=== PATIENT | female | born 1990 | race Caucasian/White ===

== ENCOUNTER → 2017-11-29 14:51 | Outpatient (CLI) | payer OTHER, SELFPAY ==
--- NOTE | 2017-11-29 14:55 | US_ITS ---
US breast LT complete Ordering Physician: Roselyn Gallagher Patient Age: 27 years: Female HISTORY: ITS.REASON: LT BREAST LUMP TECHNIQUE: Ultrasound entire breast. Axillary survey COMPARISON :August 2015. FINDINGS Ultrasound reveals dense breast tissue throughout the breasts with no focal mass or cyst identified. The palpable area seems to correspond with a dense area of fibrous tissue. Suggest follow-up ultrasound in 4 months to confirm stability negative ultrasound imaging results should not preclude biopsy of a clinically suspicious palpable area At the area does progress she may want to consider on the mammogram particularly once patient over 28 Scattered small benign axillary lymph nodes observed I would note a similar pattern was seen on the August 2015 ultrasound left breast. No significant change or new findings since that study IMPRESSION: Ultrasound reveals only dense breast tissue, with no unique cyst or mass or architectural distortion evident.
== END ==
PROVIDERS: Family Provider Nurse Practitioner; PCP Family Medicine; Visit Provider Nurse Practitioner
DX: N63.20 Unspecified lump in the left breast, unspecified quadrant (principal)
CPT/HCPCS: 76641

== ENCOUNTER → 2018-05-05 11:01 | Outpatient (CLI) | payer OTHER, SELFPAY ==
[2018-05-05 11:27] LABS: Basophils % 0.4 % (0.1-2.0); Eosinophils # 0.1 K/mm3 (0.0-0.4); Eosinophils % 0.9 % (0.1-12.0); Hematocrit 38.1 % (37.0-47.0); Hemoglobin 12.9 g/dL (12.2-16.2); Lymphocytes # 2.7 K/mm3 (0.7-4.5); Mean Corpuscular HGB Conc 33.8 g/dL (31.8-35.4); Mean Corpuscular Hemoglobin 29.3 pg (27.0-31.2); Mean Corpuscular Volume 86.7 fl (81-99); Mean Platelet Volume 6.9 fl (7.4-10.4); Monocytes # 0.4 K/mm3 (0.1-1.0); Neutrophils # 4.7 K/mm3 (1.8-7.8); Neutrophils % 59.7 % (37.0-80.0); Platelet Count 261 K/mm3 (142-424); Red Blood Count 4.39 M/mm3 (4.20-5.40); Red Cell Distribution Width 12.3 % (11.5-17.5); White Blood Count 7.9 K/mm3 (4.8-10.8)
[2018-05-06 10:59] LABS: HIV Screen 4th Generation wRfx Non Reactive (Non Reactive); Rubella Antibodies, IgG 1.58 index (Immune >0.99)
[2018-05-06 11:00] LABS: Hepatitis B Surface Antigen Negative (Negative); Hepatitis C Antibody 0.1 s/co ratio (0.0-0.9); Rapid Plasma Reagin Ab Titer Non Reactive (NonRea<1:1)
== END ==
PROVIDERS: Visit Provider Nurse Practitioner Obstetrics & Gynecology
DX: Z34.90 Encounter for supervision of normal pregnancy, unspecified, unspecified trimester (principal)
CPT/HCPCS: 36415; 85025; 86592; 86703; 86762; 86850; 87340; 87380; G0432

== ENCOUNTER → 2018-05-13 14:40 | Outpatient (CLI) | payer OTHER, SELFPAY ==
--- NOTE | 2018-05-13 14:41 | US_ITS ---
US OB transvaginal HISTORY: ITS.REASON: US OB Dates ORDERING PHYSICIAN: Bill Moody MD PATIENT AGE: 28 years COMPARISON: None FINDINGS: An intrauterine gestational sac is present with a pole with a crown-rump length of 2.00cm correlating to gestational age of 8w5d. heart tones are present with an FHR of 178 bpm's. Yolk sac is noted. Adnexa: Adnexa. IMPRESSION: Live intrauterine gestation at 8 weeks 5 days as described above. Estimated due date by Ultrasound is 12/18/2018
== END ==
PROVIDERS: PCP Nurse Practitioner; Visit Provider Nurse Practitioner Obstetrics & Gynecology
DX: O26.841 Uterine size-date discrepancy, first trimester (principal)
CPT/HCPCS: 76817

== ENCOUNTER → 2018-08-03 15:01 | Outpatient (CLI) | payer OTHER, SELFPAY ==
--- NOTE | 2018-08-03 15:06 | US_ITS ---
US OB /maternal detail: INDICATION: ITS.REASON: US OB Complete ORDERING PHYSICIAN: Bill Moody MD PATIENT AGE: 28 years TECHNIQUE: ultrasound transabdominal scanning. COMPARISON: No previous relevant studies. FINDINGS: Single viable intrauterine gestation. Breech position. Placenta: Anterior placenta grade 1. There is average amount fluid. The cervix appears satisfactory. Closed and measuring 3 cm in length. Complete survey performed and was unremarkable on the submitted images as in PACS. No discrete anomalies identified on survey imaging by technologist. Active fetus. Three-vessel cord with satisfactory umbilical cord insertion. 4- chamber heart noted. Survey of brain & ventricles unremarkable. Face and neck survey unremarkable. Diaphragm and chest views unremarkable. Abdomen: Both kidneys noted and unremarkable. Stomach noted and satisfactory. Spine: Survey of the spine satisfactory with no anomalies identified nor imaged. Both arms and legs noted. Amniotic Fluid: Adequate. Maternal adnexa: No significant findings. Measurements: Average ultrasound age 20w4d. Gestational Age 20w0d. Estimated due date by ultrasound age 0712/17/2018. Estimated weight 352 grams. BPD = 20w6d OFD = 21w3d HC = 20w4d AC = 20w4d FL = 20w2d Growth Percentile= 69% Heart Rate = 165 Cerebellum = 20w0d Humerus = 21w2d HC/AC is 1.17 (1.09-1.26). CI is 76% (70-86%). FL/BPD is 67%. FL/AC is 21%. IMPRESSION: There is a single live fetus in breech presentation. Average ultrasound age is 20 weeks and 4 days. All parameters correlate. No obvious anomalies. Please see above for detail
== END ==
PROVIDERS: PCP Nurse Practitioner; Visit Provider Nurse Practitioner Obstetrics & Gynecology
DX: Z36.0 Encounter for antenatal screening for chromosomal anomalies (principal)
CPT/HCPCS: 76811

== ENCOUNTER → 2018-09-16 06:58 | Outpatient (CLI) | payer OTHER, SELFPAY ==
[2018-09-16 07:25] LABS: Glucose,Fasting 80 mg/dL (60-105)
[2018-09-16 08:41] LABS: Glucose 1 Hour 99 mg/dL (74-106)
== END ==
PROVIDERS: Visit Provider Nurse Practitioner Obstetrics & Gynecology
DX: Z34.90 Encounter for supervision of normal pregnancy, unspecified, unspecified trimester (principal)
CPT/HCPCS: 36415; 82951

== ENCOUNTER 2018-11-17 14:12 | Outpatient (CLI) | payer OTHER, SELFPAY ==
[2018-11-17 14:22] VITALS: BP 122/76; PULSE 104; RESP 20; BMI 27.6
== END 2018-11-17 15:45 | disposition home or self-care (01) ==
LOC: OBOUT 14:13 → OB 14:14
PROVIDERS: Visit Provider Obstetrics & Gynecology
DX: O21.9 Vomiting of pregnancy, unspecified (principal); Z3A.35 35 weeks gestation of pregnancy; R11.0 Nausea
CPT/HCPCS: 59025; 96360; 96367

== ENCOUNTER → 2018-11-23 18:01 | Outpatient (CLI) | payer OTHER, SELFPAY | PROVIDERS: Visit Provider Nurse Practitioner Obstetrics & Gynecology | DX: Z34.90 Encounter for supervision of normal pregnancy, unspecified, unspecified trimester (principal) | CPT/HCPCS: 86403 ==

== ENCOUNTER 2018-12-02 19:03 | Outpatient (CLI) | payer OTHER, SELFPAY ==
[2018-12-02 19:40] VITALS: BP 123/76; PULSE 94; RESP 18; TEMP 36.7
[2018-12-02 20:35] VITALS: BMI 27.8
[2018-12-02 20:47] VITALS: BMI 27.8
== END 2018-12-02 20:45 | disposition home or self-care (01) ==
LOC: OBOUT 19:07 → OB 19:09
PROVIDERS: PCP Nurse Practitioner Obstetrics & Gynecology; Visit Provider Nurse Practitioner Obstetrics & Gynecology
DX: O26.892 Other specified pregnancy related conditions, second trimester (principal); Z3A.37 37 weeks gestation of pregnancy; W19.XXXA Unspecified fall, initial encounter
CPT/HCPCS: 59025

== ENCOUNTER 2018-12-23 04:49 | Inpatient (IN) ==
[2018-12-23 05:05] LABS: Microscopic, Urine URINE MICROSCOPIC (MICROSCOPIC)
[2018-12-23 05:06] LABS: Appearance,Urine CLEAR (Clear); Bilirubin,Urine Negative (Negative); Blood, Urine 2+ (Negative); Color,Urine YELLOW (Yellow); Glucose,Urine (UA) Negative (Negative); Ketones,Urine Negative (Negative); Leukocyte Esterase,Urine 2+ (Negative); Protein,Urine Negative (Negative); Urobilinogen,Urine 0.2 EU/dl (0.2)
[2018-12-23 05:16] LABS: Amphetamine/Metha Screen,Urine Negative ng/mL (<1000); Barbiturates Screen,Urine Negative ng/mL (<200); Benzodiazepines Screen,Urine Negative ng/mL (<200); Cannabinoid Screen,Urine Negative ng/mL (<50); Cocaine Screen,Urine Negative ng/mL (<300); Methadone Screen,Urine Negative ng/mL (<300); Opiate Screen,Urine Negative ng/mL (<300); Phencyclidine Screen,Urine Negative ng/mL (<25)
[2018-12-23 05:37] LABS: Basophils % 0.4 % (0.1-2.0); Eosinophils # 0.1 K/mm3 (0.0-0.4); Hematocrit 39.3 % (37.0-47.0); Hemoglobin 13.2 g/dL (12.2-16.2); Lymphocytes # 2.3 K/mm3 (0.7-4.5); Lymphocytes % 22.1 % (10-50); Mean Corpuscular HGB Conc 33.7 g/dL (31.8-35.4); Mean Corpuscular Volume 86.3 fl (81-99); Monocytes # 0.3 K/mm3 (0.1-1.0); Monocytes % 3.3 % (1.7-9.3); Neutrophils # 7.5 K/mm3 (1.8-7.8); Neutrophils % 73.2 % (37.0-80.0); Platelet Count 191 K/mm3 (142-424); Red Blood Count 4.55 M/mm3 (4.20-5.40); Red Cell Distribution Width 12.6 % (11.5-17.5); White Blood Count 10.3 K/mm3 (4.8-10.8)
[2018-12-23 05:40] LABS: Bacteria,Urine 1+ /lpf; Mucus,Urine 1+ /lpf
--- NOTE | 2018-12-23 08:23 | Progress Note ---
[facility] Anesthesia Checklist - Patient Identification Patient Identification: Arm Band - Structural Data Admitted From: Home Planned Operative Procedure/s: labor epidural Consent for Planned Operative Procedure(s) Verified: Yes Verified Documents: Surgical Consent, History and Physical - NPO Status Verified Time NPO: 00:00 - Additional verifications Anesthesia Reactions: No - Airway Assessment C-Spine Mobility Assessed: Yes (mp2) TMJ Mobility Assessed: Yes Dentition: Good Dentition - Neurological Assessment Level of Consciousness: Awake, Alert - Anesthesia Plan Anesthesia Risk discussed: Yes Anesthesia Plan: Verified ASA Class: II Anesthesia Type: Epidural [facility] History I have reviewed the patient's past medical history: Yes *Have you ever received a pneumonia vaccine?: No *Have you received a flu vaccine this season?: Yes Laterality Cases: Other Surgeries: Yes: Other. 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
--- NOTE | 2018-12-23 08:27 | History & Physical Report ---
OB - H&P: HPI Antepartum - History of Present Illness Chief complaint: Contractions History of present illness: She was seen in my office yesterday and began having contractions last night around midnight. They are about 10 minutes apart. She arrived in labor and delivery and was found to be 4 cm dilated. - History of Present Criteria for establishing EDC:: LMP confirmed by 1st trimester US care: good care Ultrasounds: normal 1st trimester US, normal mid trimester US Obstetrical complications: none Medical complications: none - Labs GBS status: negative [facility] History I have reviewed the patient's past medical history: Yes *Have you ever received a pneumonia vaccine?: No *Have you received a flu vaccine this season?: Yes Laterality Cases: Other Surgeries: Yes: Other. 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 Para: 1 Review of Systems - Review of Systems Review of systems:: pertinent systems reviewed and negative unless documented below Meds Home Medications Medication Instructions Recorded Confirmed Type 1 tab PO DAILY 05/04/18 12/23/18 History vitamin,calcium,ytpftstj-rimz-egqar acid tablet Ferrous Sulfate 325 mg PO DAILY 12/23/18 12/23/18 History Allergies Allergy/AdvReac Type Severity Reaction Status Date / Time No Known Allergies Allergy Verified 12/22/18 08:24 OB - H&P: Exam - Physical Exam Vital signs: Temp Pulse Resp BP Pulse Ox 98.2 F 102 H 18 121/77 98 12/23/18 05:38 12/23/18 05:38 12/23/18 05:38 12/23/18 05:38 12/23/18 05:38 - Constitutional no acute distress - Routine HEENT Exam Head: Present: normocephalic Eye: Present: EOMI, PERRL ENT: Present: mucous membranes moist - Routine Neck Exam Present: supple, full ROM - Routine Respiratory Exam Absent: accessory muscle use (good air entry bilaterally), respiratory distress, wheezes, crackles - Routine Cardiovascular Exam Present: RRR. Absent: murmur - Routine Abdominal Exam Present: soft, normoactive bowel sounds. Absent: tenderness, distended, guarding - Routine Rectal Exam Patient deferred: visual exam, digital exam - Routine Exam Patient deferred: external exam, groin exam, perineal exam - Routine Extremities Exam Present: full ROM. Absent: cyanosis, edema - Routine Skin Exam Present: intact. Absent: cyanosis - Routine Neurological Exam Present: alert, oriented X3 - Routine Psychiatric Exam Present: normal affect OB - Results - Labs Labs: Short CBC 12/23/18 Range/Units 05:20 WBC 10.3 (4.8-10.8) K/mm3 Hgb 13.2 (12.2-16.2) g/dL Hct 39.3 (37.0-47.0) % Plt Count 191 (142-424) K/mm3 Urine 12/23/18 Range/Units 04:58 Urine Color Yellow (Yellow) Urine Appearance Clear (Clear) Urine pH 7.0 (5.0-8.5) Ur Specific [place] 1.010 (1.005-1.030) Urine Protein Negative (Negative) Urine Glucose (UA) Negative (Negative) OB - A/P Antepartum (1) Normal delivery at term Current visit: Yes Status: Acute - Additional Plan Planning to breastfeed?: Yes Plan: expectant management Additional Information:: I examined her and she was found to be 4 cm dilated. She is 75% effaced and station -2. I ruptured her membranes and there was clear fluid. We will expect a vaginal delivery.
--- NOTE | 2018-12-23 08:50 | Progress Note ---
Labor Note - Subjective: Date: 12/23/18 Time: 07:20 irregular contractions - Objective: NST:: Reactive Contractions:: infrequent Cervical Dilation:: 4 Effacement:: 80% Station: -2 Membranes: artificially ruptured Comment:: Clear fluid - Fetus: Monitoring?: Yes monitoring type:: External - Assessment: Labor progressing?: Yes Cephalopelvic disproportion?: No Patient Problems: All Active Problems (Updated 12/23/18 @ 08:26 by Bill Moody MD) Normal delivery at term (Acute) (Acute) Abnormal vaginal bleeding (Acute) - Plan: Anesthesia for epidural?: Yes Continue to labor down?: Yes Plan for ?: No Continue to monitor?: Yes Start pushing?: No
--- NOTE | 2018-12-23 08:51 | Progress Note ---
Labor Note - Subjective: Date: 12/23/18 Time: 08:50 irregular contractions - Objective: NST:: Reactive Contractions:: infrequent Cervical Dilation:: 4 Effacement:: 80% Station: -2 Membranes: artificially ruptured - Fetus: Monitoring?: Yes monitoring type:: External - Assessment: Labor progressing?: Yes Cephalopelvic disproportion?: No Patient Problems: All Active Problems (Updated 12/23/18 @ 08:26 by Bill Moody MD) Normal delivery at term (Acute) (Acute) Abnormal vaginal bleeding (Acute) - Plan: Anesthesia for epidural?: Yes Continue to labor down?: Yes Plan for ?: No Continue to monitor?: Yes Start pushing?: No Comment:: She is doing very well. The nonstress test is reactive. We will start oxytocin. She has an epidural.
--- NOTE | 2018-12-23 10:31 | Progress Note ---
Labor Note - Subjective: Date: 12/23/18 Time: 10:30 regular contraction - Objective: NST:: Reactive Contractions:: every 2-3 minutes Cervical Dilation:: 6 Effacement:: 90% Station: -2 Membranes: artificially ruptured - Fetus: Monitoring?: Yes monitoring type:: Internal and External Comment:: I inserted an IUPC - Assessment: Labor progressing?: Yes Cephalopelvic disproportion?: No Patient Problems: All Active Problems (Updated 12/23/18 @ 08:26 by Bill Moody MD) Normal delivery at term (Acute) (Acute) Abnormal vaginal bleeding (Acute) - Plan: Anesthesia for epidural?: Yes Continue to labor down?: Yes Plan for ?: No Continue to monitor?: Yes Start pushing?: No
--- NOTE | 2018-12-23 12:45 | Procedure Note ---
- Delivery Note Delivery Date:: 12/23/18 Delivery Time:: 12:32 Anesthesia Type: Epidural Was labor medically induced?: No Induction method: none Gestational age (weeks): 40 delivered prior to 39 weeks?: No Justification for early elective delivery:: Active Labor Gender: Female at 1 minute: 8 at 5 minutes: 9 LAC or MLE?: LAC Delivery Procedure:: She is a 28-year-old 3 para 1 aborta 1 who was 40+2 weeks gestational age. She came in in the activity therapist hours of December 23 in early labor. She was found to be 4 cm dilated. She subsequent he had her membranes ruptured and progressed under labor epidural to full dilation. On deliver the head the anterior shoulder then delivered followed by the rest of the infant's body atraumatically. The baby was vigorous and crying. The baby was dried and we allowed the cord to continue to pulsate for approximately 1 minute. The cord was then doubly clamped and cut and the infant was placed on the mother's abdomen for further care. The nurses assigned Apgars of at 1 minute and 9 at 5 minutes. I then obtained cord blood as well as cord pH. Using gentle traction on the cord and countertraction on the fundus I was able to easily deliver the placenta intact at 1235. It had a normal three-vessel cord. She had a small first-degree perineal laceration was repaired with interrupted 3-0 Vicryl Rapide suture. She has a positive blood, she is rubella immune and was group A streptococcus negative. She plans to breast-feed. Her pattern drum maker is Dr. Parikh. Estimated blood loss was approximately 400 cc. Laceration:: vaginal Placental Delivery Description: Spontaneous
[2018-12-24 05:48] LABS: Hematocrit 33.7 % (37.0-47.0); Hemoglobin 11.4 g/dL (12.2-16.2)
--- NOTE | 2018-12-24 09:56 | Progress Note ---
Internal Medicine - PN: Subj *Date: 12/24/18 *Time: 09:56 Interval history: She continues to do well. She is eating and drinking and ambulating. She is breast-feeding. Her lochia is normal. Exam Vital signs and Labs for Last 24 Hours: Temp Pulse Resp BP Pulse Ox 98.1 F 90 18 106/58 L 97 12/24/18 08:00 12/24/18 08:00 12/24/18 08:00 12/24/18 08:00 12/24/18 08:00 Laboratory Results - last 24 hr 12/23/18 12:51: Cord ABG pH 7.39 12/24/18 05:40: Hgb 11.4 L, Hct 33.7 L I & O for Last 24 hours: Intake & Output 12/21/18 12/22/18 12/23/18 12/24/18 11:59 11:59 11:59 11:59 Output Total 750 / 750 Balance -750 / -750 Weight 167 lb Microbiology Reports for the Last 24 Hours: Microbiology 12/23/18 04:58 Urine,Clean Catch Urine Culture - Preliminary - Constitutional no acute distress Assessment and Plan (1) Normal delivery at term Current visit: Yes Status: Acute Category: Medical Code(s): O80 - Encounter for full-term uncomplicated delivery - Assessment and plan all Dx Assessment and Plan for all problems:: She continues to do very well. We will plan to send her home tomorrow.
[2018-12-25 08:15] VITALS: BP 119/58
--- NOTE | 2018-12-25 10:13 | Discharge Summary ---
General - General Admission date:: 12/23/18 Discharge date: 12/25/18 HPI HPI: She is a 28-year-old 3 now para 2 aborta 1 who was 40 and 2 weeks gestational age. She came in in early labor. She was found to be 4 cm dilated. As result of that she was admitted for delivery. Hospital Course Hospital Course: She progressed under labor epidural to full dilation and delivered spontaneously a liveborn female child at 12:32 PM in the afternoon of December 23, 2018. The baby weighed 7 pounds 7 ounces and was 19 and three-quarter inches long. She had Apgars of 8 at 1 minute and 9 at 5 minutes. She has done well and has remained afebrile throughout her hospitalization. She is eating and drinking and ambulating. She is breast- feeding. Her user interface developer Dr. Parikh. She has a positive blood, she is rubella immune and was group B stopcock is negative. She is discharged home to follow-up with me in approximately 2 weeks time. She will continue with her vitamins and iron. She is taking brox-rle-hmyokqr analgesics. Her condition on discharge is stable. Rhogam Administration: Not Indicated Objective Vital signs: Temp Pulse Resp BP Pulse Ox 97.9 F 90 20 119/58 L 97 12/25/18 08:00 12/25/18 08:00 12/25/18 08:00 12/25/18 08:00 12/25/18 08:00 no acute distress DS: Diagnosis - Discharge Diagnosis (1) Normal delivery at term Status: Acute Discharge Plan - Patient Discharge Instructions ACTIVITY: No heavy lifting DIET: continue same diet Additional Instructions: No heavy lifting, no strenuous activity and nothing in the vagina for [address] Moody's office tomorrow for 2 week follow up appt. Patient Instructions: Depression, Hemorrhage, [facility] Post Discharge Instructions - Follow up Plan Disposition: Home, Self-Detention Medications: Home Medications Medication Instructions Recorded Confirmed Type 1 tab PO DAILY 05/04/18 12/23/18 History vitamin,calcium,abcancec-vruu-fcxwe acid tablet Ferrous Sulfate 325 mg PO DAILY 12/23/18 12/23/18 History Prescriptions/Medication Reconciliation: Continued vitamin,calcium,zvofjtyi-frjn-lsjlu acid tablet 1 tab PO DAILY Ferrous Sulfate 325 mg PO DAILY
== END 2018-12-25 10:42 | disposition home or self-care (01) | DRG 807 ==
LOC: OBOUT 04:49 → OB 04:51
PROVIDERS: ADMIT Obstetrics & Gynecology; ATTEND Nurse Practitioner Obstetrics & Gynecology
CPT/HCPCS: C1758

== ENCOUNTER → 2019-10-16 13:03 | Outpatient (CLI) | payer OTHER, SELFPAY ==
--- NOTE | 2019-10-16 13:06 | XR_ITS ---
PROCEDURE: XR FINGER LT MIN 2V CLINICAL INDICATION: left thumb pain COMPARISON: FINR1 [id number] (THUMB)-3 VIEWS from 06/14/2014 FINDINGS: No fracture or dislocation. No lytic or blastic change. There is normal mineralization. The joint spaces are well-preserved. No significant degenerative/arthritic changes. No erosive changes evident. Other findings:None. IMPRESSION: Negative left thumb Dictated by: Bashir Acharya MD 10/16/2019 13:46 Electronically signed by Bashir Acharya MD in [place] 10/16/2019 13:46
== END ==
PROVIDERS: PCP Nurse Practitioner; Visit Provider Orthopaedic Surgery
DX: M79.645 Pain in left finger(s) (principal)
CPT/HCPCS: 73140

== ENCOUNTER → 2019-11-29 07:11 | Outpatient (CLI) | payer OTHER, SELFPAY ==
[2019-11-29 07:52] LABS: Basophils # 0.1 K/mm3 (0-0.2); Basophils % 0.7 % (0.1-2.0); Eosinophils # 0.1 K/mm3 (0.0-0.4); Hematocrit 42.3 % (37.0-47.0); Hemoglobin 14.5 g/dL (12.2-16.2); Lymphocytes # 2.8 K/mm3 (0.7-4.5); Lymphocytes % 40.1 % (10-50); Mean Corpuscular HGB Conc 34.4 g/dL (31.8-35.4); Mean Corpuscular Hemoglobin 30.3 pg (27.0-31.2); Mean Corpuscular Volume 88.2 fl (81-99); Mean Platelet Volume 6.8 fl (7.4-10.4); Monocytes # 0.3 K/mm3 (0.1-1.0); Monocytes % 4.5 % (1.7-9.3); Neutrophils # 3.7 K/mm3 (1.8-7.8); Neutrophils % 52.7 % (37.0-80.0); Platelet Count 263 K/mm3 (142-424); Red Blood Count 4.79 M/mm3 (4.20-5.40); Red Cell Distribution Width 12.9 % (11.5-17.5)
[2019-11-29 08:37] LABS: Chloride 103 mmol/L (98-107); Sodium 138 mmol/L (136-145)
[2019-11-29 08:38] LABS: Potassium 4.2 mmoL/L (3.5-5.1)
[2019-11-29 08:40] LABS: Alanine Aminotransferase 14 U/L (12-78); Alkaline Phosphatase 85 U/L (38-126); Aspartate Amino Transferase 21 U/L (14-36); Bilirubin,Total 0.8 mg/dl (0.2-1.3); Blood Urea Nitrogen 15 mg/dl (7-17); Estimated Glomerular Filt Rate 99 ml/min (>60); GFR (African American) 120 ML/MIN (>60)
[2019-11-29 08:41] LABS: Albumin Level 4.6 g/dl (3.5-5.0); Albumin/Globulin Ratio 1.8 (1.1-1.8); Anion Gap 10.2 mEq/L (5-15); Calcium 9.2 mg/dl (8.4-10.2); Carbon Dioxide 29 mmol/L (22.0-30.0); Globulin 2.5 g/dL (1.3-3.2); Glucose 84 mg/dl (74-100); Total Protein,Serum 7.1 g/dl (6.3-8.2)
[2019-11-29 09:12] LABS: Thyroid Stimulating Hormone 2.44 uIU/mL (0.465-4.68)
[2019-11-29 09:34] LABS: 25-OH Vitamin D, Total 55.1 ng/mL (30-100)
[2019-11-29 10:25] LABS: Coronavirus 19 IgG Antibody Negative (Negative); Coronavirus 19 IgM Antibody Negative (Negative)
[2019-11-30 12:44] LABS: Vitamin B12 1302 pg/mL (232-1245)
== END ==
PROVIDERS: Visit Provider Surgery
DX: R53.83 Other fatigue (principal); Z03.818 Encounter for observation for suspected exposure to other biological agents ruled out
CPT/HCPCS: 36415; 80053; 82306; 82607; 84443; 85025; 86328

== ENCOUNTER → 2020-01-29 11:13 | Outpatient (CLI) | payer OTHER, SELFPAY ==
[2020-01-30 16:20] LABS: Covid-19 Nasal PCR Sendout Lex NOT DETECTED
== END ==
PROVIDERS: PCP Internal Medicine Adolescent Medicine; Visit Provider Internal Medicine Adolescent Medicine
DX: Z03.818 Encounter for observation for suspected exposure to other biological agents ruled out (principal)
CPT/HCPCS: U0004

== ENCOUNTER → 2020-04-03 12:13 | Outpatient (CLI) | payer OTHER, SELFPAY ==
[2020-04-03 12:53] LABS: Basophils % 0.4 % (0.1-2.0); Eosinophils # 0.1 K/mm3 (0.0-0.4); Eosinophils % 1.9 % (0.1-12.0); Hematocrit 43.6 % (37.0-47.0); Hemoglobin 14.5 g/dL (12.2-16.2); Lymphocytes # 2.4 K/mm3 (0.7-4.5); Lymphocytes % 34.3 % (10-50); Mean Corpuscular HGB Conc 33.4 g/dL (31.8-35.4); Mean Corpuscular Hemoglobin 29.4 pg (27.0-31.2); Mean Corpuscular Volume 88.2 fl (81-99); Monocytes # 0.3 K/mm3 (0.1-1.0); Monocytes % 3.9 % (1.7-9.3); Neutrophils # 4.1 K/mm3 (1.8-7.8); Neutrophils % 59.4 % (37.0-80.0); Platelet Count 319 K/mm3 (142-424); Red Blood Count 4.94 M/mm3 (4.20-5.40); Red Cell Distribution Width 12.6 % (11.5-17.5); White Blood Count 6.9 K/mm3 (4.8-10.8)
[2020-04-03 13:04] LABS: HCG Qualitative, Serum Negative (Negative)
[2020-04-03 13:09] LABS: Chloride 100 mmol/L (98-107); Sodium 141 mmol/L (136-145)
[2020-04-03 13:10] LABS: Potassium 4.4 mmoL/L (3.5-5.1)
--- NOTE | 2020-04-03 13:10 | CA_ITS ---
APPROVED REPORT EXAM: Comprehensive 2D, Doppler, and color-flow Echocardiogram Glass Polisher: Reyna Hwang CRT Ht: 5 ft 5 in Wt: 138lbs BSA: 1.69 BP: 117/74 mmHg Indications: Abnormal ECG, Shortness of Breath, Palpitations, Peripheral Edema, Tachycardia 2D Dimensions LVOT 2.01 cm (M/F) 1.5-2.5 M-Mode Dimensions RVDd 2.28 cm (0.9-2.6) LVDd 4.93 cm (3.5-5.7) LVDs 3.59 cm (3.5-5.7) IVSd 0.59 cm (0.6-1.1) PWd 0.67 cm (0.6-1.1) EF (Teich) 52.70% FS 27.20% EDV (Teich) 114.40 mL ESV (Teich) 54.10 mL LV Diastology E Decel Time 150.00 (160-240 msec) E/A Ratio 0.96 MED E' 11.00 (< 7 cm/sec) E'/MED E' Ratio 5.93 (>14) LAT E' 18.80 (<10 cm/sec) E/LAT E' Ratio 3.47 (>14) Aortic Valve AO Peak GR. 5.50 mmHg Mitral Valve MV E Max Blanco. 65.00 (40-130 cm/s) MV A Velocity 68.00 (40-130 cm/s) E/A Ratio 0.96 MV Decel. Time 150.00 (160-240 ms) MV PHT 44.00 ms Pulmonary Valve PV Peak Velocity 64.00 (50-150 cm/s) Tricuspid Valve TR P. Velocity 186.00 cm/s RAP Estimate 10.00 mmHg RVSP 23.90 mmHg Left Ventricle Left atrium is normal size, left ventricle is normal size, there is no concentric left ventricular hypertrophy, visually estimated ejection fraction 55% with no regional wall motion abnormality, diastolic parameters are within normal range. Right Ventricle Right atrium and right ventricular normal size and contractility. Aortic Valve Aortic valve is grossly normal, there is no aortic stenosis or aortic insufficiency. Mitral Valve Mitral valve is grossly normal, there is trace mitral regurgitation. Tricuspid Valve Tricuspid valve is grossly normal, there is trace tricuspid regurgitation. Tricuspid regurgitation jet velocity is inadequate for calculation of the right ventricular systolic pressure. Pulmonic Valve Pulmonic valve is poorly visualized. Great Vessels Aortic root is normal size. Pericardium No significant pericardial effusion noted. Conclusion 1. Normal left ventricular size, preserved left ventricular systolic function, visually estimated ejection fraction 55% with no regional wall motion abnormality, diastolic parameters are within normal range. 2. Trace mitral and tricuspid regurgitation. 3. No significant pericardial effusion noted. Electronically signed by : Janes Da Silva, 04/04/2020 15:38:30
--- NOTE | 2020-04-03 13:11 | CT_ITS ---
PROCEDURE: CT ANGIO CHEST CLINCIAL INDICATION: with PE protocol soa, palpitations x several months COMPARISON: No exams were available for comparison TECHNIQUE: IV Contrast: 70ML OPTIRAY 350 Axial images obtained with sagittal and coronal reformats. All CT scans at the facility use one or more dose reduction, viz: automated exposure control, ma/kV adjustment per patient size (including targeted exams where dose is matched to indication, i.e. head), or iterative reconstruction technique. FINDINGS: HEART AND MEDIASTINAL STRUCTURES: No evidence of aortic aneurysm or dissection. No evidence of pulmonary embolus. LUNGS AND PLEURAL SPACES: There is a peripheral area of ground-glass consolidation in the right lower lobe with a somewhat greater area consolidation adjacent to this region laterally posteriorly consistent with pneumonia. No effusions. No other areas of consolidation evident. BONY STRUCTURES: No acute bony abnormalities apparent. UPPER ABDOMEN: Unremarkable. ADDITIONAL FINDINGS: No other significant abnormalities. IMPRESSION: 1. No evidence of pulmonary embolus. 2. Consolidation in the right lower lobe as described above consistent with pneumonia Dictated by: Bashir Acharya MD 04/04/2020 08:02 Bashir Acharya MD in [place] 04/04/2020 08:03
[2020-04-03 13:12] LABS: Alanine Aminotransferase 13 U/L (12-78); Anion Gap 17.4 mEq/L (5-15); Aspartate Amino Transferase 23 U/L (14-36); Bilirubin,Unconjugated 0.7 mg/dL (0.0-1.1); Blood Urea Nitrogen 13 mg/dl (7-17); Carbon Dioxide 28 mmol/L (22.0-30.0); Estimated Glomerular Filt Rate 74 ml/min (>60); GFR (African American) 90 ML/MIN (>60)
[2020-04-03 13:13] LABS: Alkaline Phosphatase 66 U/L (38-126); Bilirubin,Indirect 0.7 mg/dL (0.0-0.9); Bilirubin,Total 0.7 mg/dl (0.2-1.3); Calcium 9.6 mg/dl (8.4-10.2); Glucose 92 mg/dl (74-100); Total Protein,Serum 7.8 g/dl (6.3-8.2)
[2020-04-03 13:30] LABS: Free T4 (Free Thyroxine) 1.15 ng/dl (0.78-2.19)
[2020-04-03 13:44] LABS: Thyroid Stimulating Hormone 1.64 uIU/mL (0.465-4.68)
[2020-04-03 14:20] LABS: D-Dimer 0.28 ug/mL (0.15-8.0)
== END ==
PROVIDERS: PCP Family Medicine; Visit Provider Nurse Practitioner Family
DX: R06.00 Dyspnea, unspecified (principal); R00.0 Tachycardia, unspecified; R00.2 Palpitations; R94.31 Abnormal electrocardiogram [ECG] [EKG]; E11.9 Type 2 diabetes mellitus without complications
CPT/HCPCS: 36415; 71275; 80048; 80076; 84439; 84443; 84703; 85025; 85378; 93225; 93226; 93306; Q9967

== ENCOUNTER → 2020-04-04 11:08 | Outpatient (CLI) | payer OTHER, SELFPAY ==
[2020-04-04 14:03] LABS: Adenovirus,PCR Not Detected (NotDetected); Bordetella Pertussis Not Detected (NotDetected); Chlamydophila Pneumoniae, PCR Not Detected (NotDetected); Coronavirus 19, PCR Not Detected (NotDetected); Coronavirus 229E Not Detected (NotDetected); Coronavirus NL63 Not Detected (NotDetected); Coronavirus OC43 Not Detected (NotDetected); Coronovirus HKU1,PCR Not Detected (NotDetected); Human Metapneumovirus Not Detected (NotDetected); Influenza A, PCR Not Detected (NotDetected); Influenza AH1, 2009 Not Detected (NotDetected); Influenza AH1, PCR Not Detected (NotDetected); Influenza AH3,PCR Not Detected (NotDetected); Influenza B, PCR Not Detected (NotDetected); Mycoplasma Pneumoniae, PCR Not Detected (NotDetected); Parainfluenza 1, PCR Not Detected (NotDetected); Parainfluenza 2, PCR Not Detected (NotDetected); Parainfluenza 3, PCR Not Detected (NotDetected); Parainfluenza 4, PCR Not Detected (NotDetected); Respiratory Syncytial Virus Not Detected (NotDetected); Rhinovirus/Enterovirus Not Detected (NotDetected)
== END ==
PROVIDERS: PCP Family Medicine; Visit Provider Nurse Practitioner Family
DX: Z03.818 Encounter for observation for suspected exposure to other biological agents ruled out (principal)
CPT/HCPCS: 87581; 87633; 87798; U0003

== ENCOUNTER → 2020-04-30 17:36 | Outpatient (CLI) | payer OTHER, SELFPAY ==
[2020-04-30 18:58] LABS: Coronavirus 19 IgG Antibody Positive (Negative); Coronavirus 19 IgM Antibody Negative (Negative)
== END ==
PROVIDERS: Visit Provider Otolaryngology
DX: Z01.84 Encounter for antibody response examination (principal)
CPT/HCPCS: 86328

== ENCOUNTER → 2020-07-03 11:06 | Outpatient (CLI) | payer OTHER, SELFPAY ==
[2020-07-03 11:41] LABS: Coronavirus 19 IgG Antibody Negative (Negative); Coronavirus 19 IgM Antibody Negative (Negative)
== END ==
PROVIDERS: Visit Provider Surgery
DX: Z01.812 Encounter for preprocedural laboratory examination (principal); Z20.822 Contact with and (suspected) exposure to COVID-19
CPT/HCPCS: 86328

== ENCOUNTER 2020-07-05 13:55 | Day surgery (SDC) | payer OTHER, SELFPAY ==
[2020-07-05 13:57] VITALS: BP 110/74; BP 110/78; PULSE 74; PULSE 89; RESP 18; O2SAT 99
[2020-07-05 13:59] VITALS: BP 101/55; PULSE 63; RESP 18; TEMP 36.6; O2SAT 100; BMI 22.4
[2020-07-05 14:07] VITALS: BP 105/58; PULSE 65; RESP 18; TEMP 36.6; O2SAT 100
--- NOTE | 2020-07-05 14:08 | [facility].PMPROC ---
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 She has developed some increasing pain over her left hip. She is tender over her left SI joint. She has a positive Tony's test on left side. She has positive SI joint compression test on left side. She is positive distraction test on left side. She has a positive Jerrell test on left side. We will plan a left SI joint injection under fluoroscopy today to help with her pain symptoms. Procedure Details:: Left SI joint injection under fluoroscopy Informed consent was obtained and the risks and benefits of the procedure was explained to the patient. Patient was taken to the procedure room. Patient was placed prone on the procedure table. The left hip was prepped using ChloraPrep. The skin and subcutaneous tissues were anesthetized using lidocaine. I placed a 22-gauge spinal needle into the inferior aspect of the left SI joint. Needle placement was confirmed with dye. After this we injected 5 mL bupivacaine 0.25% and Depo-Medrol 40 mg into the left SI joint. The patient tolerated the procedure well with no complication. Plan and Disposition:: We will follow-up with her in 2 weeks. Will reevaluate symptoms at that time.
== END 2020-07-05 14:05 | disposition home or self-care (01) ==
LOC: SC.PAINP 13:55
PROVIDERS: PCP Family Medicine; Visit Provider Anesthesiology
DX: M46.1 Sacroiliitis, not elsewhere classified (principal)
CPT/HCPCS: 27096; G0260

== ENCOUNTER → 2021-04-29 08:46 | Outpatient (POV) | payer OTHER, SELFPAY | PROVIDERS: Visit Provider Dermatology | DX: Z00.00 Encounter for general adult medical examination without abnormal findings (principal) ==

== ENCOUNTER → 2021-07-08 15:29 | Outpatient (POV) | payer OTHER, SELFPAY | PROVIDERS: Visit Provider Dermatology | DX: Z00.00 Encounter for general adult medical examination without abnormal findings (principal) ==

== ENCOUNTER → 2021-10-14 15:26 | Outpatient (POV) | payer OTHER, SELFPAY | PROVIDERS: Visit Provider Dermatology | DX: Z00.00 Encounter for general adult medical examination without abnormal findings (principal) ==

== ENCOUNTER → 2022-02-03 13:40 | Outpatient (POV) | payer OTHER, SELFPAY | PROVIDERS: Visit Provider Dermatology | DX: Z00.00 Encounter for general adult medical examination without abnormal findings (principal) ==

== ENCOUNTER → 2022-04-21 08:27 | Outpatient (POV) | payer OTHER, SELFPAY | PROVIDERS: Visit Provider Dermatology | DX: Z00.00 Encounter for general adult medical examination without abnormal findings (principal) ==

== ENCOUNTER → 2022-06-17 08:51 | Outpatient (CLI) | payer OTHER, SELFPAY ==
[2022-06-17 10:21] LABS: HCG,Quantitative 10 mIU/ml (0-5.42)
[2022-06-18 12:59] LABS: Progesterone 0.3 ng/mL (.)
== END ==
PROVIDERS: PCP Internal Medicine Adolescent Medicine; Visit Provider Nurse Practitioner Obstetrics & Gynecology
DX: N92.6 Irregular menstruation, unspecified (principal); Z32.00 Encounter for pregnancy test, result unknown
CPT/HCPCS: 36415; 84144; 84702

== ENCOUNTER → 2022-06-19 06:43 | Outpatient (CLI) | payer OTHER, SELFPAY ==
[2022-06-19 08:48] LABS: HCG,Quantitative 9 mIU/ml (0-5.42)
[2022-06-20 08:52] LABS: Progesterone 0.2 ng/mL (.)
== END ==
PROVIDERS: PCP Internal Medicine Adolescent Medicine; Visit Provider Nurse Practitioner Obstetrics & Gynecology
DX: N92.6 Irregular menstruation, unspecified (principal); Z32.00 Encounter for pregnancy test, result unknown
CPT/HCPCS: 36415; 84144; 84702

== ENCOUNTER → 2022-06-29 08:32 | Outpatient (CLI) | payer OTHER, SELFPAY ==
[2022-06-29 10:31] LABS: HCG,Quantitative 106 mIU/ml (0-5.42)
== END ==
PROVIDERS: PCP Internal Medicine Adolescent Medicine; Visit Provider Nurse Practitioner Obstetrics & Gynecology
DX: Z34.90 Encounter for supervision of normal pregnancy, unspecified, unspecified trimester (principal)
CPT/HCPCS: 36415; 84702

== ENCOUNTER → 2022-07-01 06:35 | Outpatient (CLI) | payer OTHER, SELFPAY ==
[2022-07-01 09:26] LABS: HCG,Quantitative 109 mIU/ml (0-5.42)
[2022-07-02 08:45] LABS: Progesterone 11.5 ng/mL (.)
== END ==
PROVIDERS: PCP Internal Medicine Adolescent Medicine; Visit Provider Nurse Practitioner Obstetrics & Gynecology
DX: Z32.01 Encounter for pregnancy test, result positive (principal)
CPT/HCPCS: 36415; 84144; 84702

== ENCOUNTER → 2022-07-03 06:48 | Outpatient (CLI) | payer OTHER, SELFPAY ==
[2022-07-03 08:05] LABS: HCG,Quantitative 188 mIU/ml (0-5.42)
--- NOTE | 2022-07-03 09:09 | US_ITS ---
FINAL REPORT CLINICAL HISTORY: rule out ectopic FINDINGS: Sonographic images of the pelvis were obtained. No intrauterine is identified. The uterus is unremarkable. There is a complex hypoechoic mass in the left adnexa measuring up to 17 mm with significant surrounding hypervascularity, could represent ectopic or complex cyst. The right ovary is normal. No free fluid is seen to indicate rupture/hemoperitoneum. IMPRESSION: No intrauterine . Possible ectopic within the left adnexa. Reviewed, Interpreted and Dictated by Vanessa Dennis MD Transcribed by Rebecca Bernard Authenticated and [facility]
== END ==
PROVIDERS: PCP Internal Medicine Adolescent Medicine; Visit Provider Nurse Practitioner Obstetrics & Gynecology
DX: O20.9 Hemorrhage in early pregnancy, unspecified (principal)
CPT/HCPCS: 36415; 76801; 84702

== ENCOUNTER 2022-07-06 06:35 | Outpatient (CLI) | payer OTHER, SELFPAY ==
[2022-07-06 08:07] LABS: HCG,Quantitative 298 mIU/ml (0-5.42)
[2022-07-06 13:35] VITALS: BP 127/77; PULSE 102; RESP 18; TEMP 36.4; O2SAT 100
[2022-07-06 13:47] LABS: Chloride 103 mmol/L (98-107); Potassium 3.9 mmoL/L (3.5-5.1); Sodium 140 mmol/L (136-145)
[2022-07-06 13:50] LABS: Alanine Aminotransferase 22 U/L (12-78); Albumin Level 4.8 g/dl (3.5-5.0); Albumin/Globulin Ratio 1.7 (1.1-1.8); Alkaline Phosphatase 42 U/L (38-126); Anion Gap 11.9 mEq/L (5-15); Aspartate Amino Transferase 29 U/L (14-36); Bilirubin,Total 0.5 mg/dl (0.2-1.3); Blood Urea Nitrogen 14 mg/dl (7-17); Carbon Dioxide 29 mmol/L (22.0-30.0); Estimated Glomerular Filt Rate 64 ml/min (>60); GFR (African American) 78 ML/MIN (>60); Globulin 2.9 g/dL (1.3-3.2); Total Protein,Serum 7.7 g/dl (6.3-8.2)
[2022-07-06 13:51] LABS: Glucose 92 mg/dl (74-100)
[2022-07-06 14:08] LABS: Basophils # 0.1 K/mm3 (0-0.2); Basophils % 1.2 % (0.1-2.0); Eosinophils # 0.1 K/mm3 (0.0-0.4); Eosinophils % 1.7 % (0.1-12.0); Hematocrit 40.1 % (37.0-47.0); Hemoglobin 13.5 g/dL (12.2-16.2); Lymphocytes # 2.8 K/mm3 (0.7-4.5); Lymphocytes % 34.1 % (10-50); Mean Corpuscular HGB Conc 33.7 g/dL (31.8-35.4); Mean Corpuscular Hemoglobin 28.7 pg (27.0-31.2); Mean Platelet Volume 7.5 fl (7.4-10.4); Monocytes # 0.4 K/mm3 (0.1-1.0); Monocytes % 4.6 % (1.7-9.3); Neutrophils # 4.8 K/mm3 (1.8-7.8); Neutrophils % 58.4 % (37.0-80.0); Platelet Count 331 K/mm3 (142-424); Red Blood Count 4.71 M/mm3 (4.20-5.40); Red Cell Distribution Width 12.4 % (11.5-17.5); White Blood Count 8.3 K/mm3 (4.8-10.8)
== END 2022-07-06 13:35 | disposition home or self-care (01) ==
LOC: LAB 13:18 → INF 13:18
PROVIDERS: PCP Internal Medicine Adolescent Medicine; Visit Provider Nurse Practitioner Obstetrics & Gynecology
DX: O20.9 Hemorrhage in early pregnancy, unspecified (principal)
CPT/HCPCS: 36415; 80053; 84702; 85025; 96372; J9250

== ENCOUNTER → 2022-07-09 06:41 | Outpatient (CLI) | payer OTHER, SELFPAY ==
[2022-07-09 08:01] LABS: HCG,Quantitative 441 mIU/ml (0-5.42)
== END ==
PROVIDERS: PCP Internal Medicine Adolescent Medicine; Visit Provider Nurse Practitioner Obstetrics & Gynecology
DX: O00.90 Unspecified ectopic pregnancy without intrauterine pregnancy (principal)
CPT/HCPCS: 36415; 84702

== ENCOUNTER → 2022-07-13 06:36 | Outpatient (CLI) | payer OTHER, SELFPAY ==
[2022-07-13 08:36] LABS: HCG,Quantitative 350 mIU/ml (0-5.42)
== END ==
PROVIDERS: PCP Internal Medicine Adolescent Medicine; Visit Provider Nurse Practitioner Obstetrics & Gynecology
DX: O00.90 Unspecified ectopic pregnancy without intrauterine pregnancy (principal)
CPT/HCPCS: 36415; 84702

== ENCOUNTER → 2022-07-20 08:24 | Outpatient (CLI) | payer OTHER, SELFPAY ==
[2022-07-20 09:59] LABS: HCG,Quantitative 88 mIU/ml (0-5.42)
== END ==
PROVIDERS: PCP Internal Medicine Adolescent Medicine; Visit Provider Nurse Practitioner Obstetrics & Gynecology
DX: O00.90 Unspecified ectopic pregnancy without intrauterine pregnancy (principal)
CPT/HCPCS: 36415; 84702

== ENCOUNTER → 2022-07-27 06:40 | Outpatient (CLI) | payer OTHER, SELFPAY ==
[2022-07-27 08:54] LABS: HCG,Quantitative 6 mIU/ml (0-5.42)
== END ==
PROVIDERS: PCP Internal Medicine Adolescent Medicine; Visit Provider Nurse Practitioner Obstetrics & Gynecology
DX: O00.90 Unspecified ectopic pregnancy without intrauterine pregnancy (principal)
CPT/HCPCS: 36415; 84702

== ENCOUNTER → 2022-08-06 07:12 | Outpatient (CLI) | payer OTHER, SELFPAY ==
[2022-08-06 08:08] LABS: HCG,Quantitative < 2 mIU/ml (0-5.42)
== END ==
PROVIDERS: PCP Internal Medicine Adolescent Medicine; Visit Provider Nurse Practitioner Obstetrics & Gynecology
DX: O00.90 Unspecified ectopic pregnancy without intrauterine pregnancy (principal)
CPT/HCPCS: 36415; 84702

== ENCOUNTER 2022-08-14 10:28 | Day surgery (SDC) | payer OTHER, SELFPAY ==
[2022-08-14 13:30] VITALS: BP 121/80; PULSE 93; RESP 20; O2SAT 98; BMI 22.1
[2022-08-14 13:36] VITALS: BP 134/73; PULSE 96; RESP 18; O2SAT 97; O2SAT 98
--- NOTE | 2022-08-14 13:44 | EXP.PAIN.PRO ---
Procedure Date: 08/14/22 Time: 13:45 Anesthesiologist:: Jonh Castro MD Complications:: None Pre-procedure Diagnosis:: Sacroiliitis Post-procedure Diagnosis:: Same Indications for Procedure:: This patient is a pleasant 32-year-old white female who we are treating for bilateral hip pain. She is tender over both SI joints. She has a positive Tony's test bilaterally. She is positive Jerrell test bilaterally. She is positive SI joint compression test bilaterally. She has positive distraction test bilaterally. She has done well with SI joint injections in the past. She was 80 to 90% better for 4 to 5 months. Her pain is now returned. She presents for repeat bilateral SI joint injection under fluoroscopy. Procedure Details:: B/L SI joint injection under fluoroscopy Informed consent was obtained and the risks and benefits of the procedure was explained to the patient. The patient was taken to the procedure room and placed prone on the procedure table. The patient was prepped using ChloraPrep. The skin and subcutaneous tissues overlying the SI joints were anesthetized using lidocaine. I placed a 22-gauge needle first in the left SI joint and second in the right SI joint. Needle placement was confirmed with dye. After this we injected 5 mL bupivacaine 0.25% and Depo-Medrol 40 mg into each SI joint. Patient tolerated the procedure well with no complication. Plan and Disposition:: We will follow-up with her in 2 weeks. Will reevaluate symptoms at that time.
[2022-08-14 13:45] VITALS: BP 121/80; PULSE 93; RESP 20
== END 2022-08-14 13:46 | disposition home or self-care (01) ==
PROVIDERS: PCP Internal Medicine Adolescent Medicine; Visit Provider Anesthesiology
DX: M46.1 Sacroiliitis, not elsewhere classified (principal); M25.551 Pain in right hip; M25.552 Pain in left hip
CPT/HCPCS: 27096; G0260; J1030; Q9966

== ENCOUNTER → 2022-08-18 10:44 | Outpatient (POV) | payer OTHER, SELFPAY | PROVIDERS: Visit Provider Dermatology | DX: Z00.00 Encounter for general adult medical examination without abnormal findings (principal) ==

== ENCOUNTER → 2022-09-10 14:11 | Outpatient (CLI) | payer OTHER, SELFPAY ==
--- NOTE | 2022-09-10 14:13 | XR_ITS ---
FINAL REPORT CLINICAL HISTORY: knee pain FINDINGS: RIGHT KNEE 3 views of the right knee were obtained. There is no acute fracture or dislocation. Visualized joint spaces are normally aligned. Joint spaces are intact. Soft tissues are unremarkable. IMPRESSION: No acute bony abnormality. Reviewed, Interpreted and Dictated by Julio C Prince MD Transcribed by Marzena Hall Authenticated and [facility]
== END ==
PROVIDERS: PCP Internal Medicine Adolescent Medicine; Visit Provider Physician Assistant Surgical
DX: M25.561 Pain in right knee (principal)
CPT/HCPCS: 73562

== ENCOUNTER → 2022-10-20 07:57 | Outpatient (POV) | payer OTHER, SELFPAY | PROVIDERS: Visit Provider Dermatology | DX: Z00.00 Encounter for general adult medical examination without abnormal findings (principal) ==

== ENCOUNTER → 2022-10-22 23:43 | Outpatient (CLI) | payer OTHER, SELFPAY ==
[2022-10-22 18:20] LABS: Basophils # 0.1 K/mm3 (0-0.2); Basophils % 0.6 % (0.1-2.0); Eosinophils # 0.1 K/mm3 (0.0-0.4); Eosinophils % 1.7 % (0.1-12.0); Hematocrit 41.8 % (37.0-47.0); Hemoglobin 13.4 g/dL (12.2-16.2); Lymphocytes # 2.6 K/mm3 (0.7-4.5); Lymphocytes % 30.8 % (10-50); Mean Corpuscular HGB Conc 32.2 g/dL (31.8-35.4); Mean Corpuscular Hemoglobin 28.4 pg (27.0-31.2); Mean Corpuscular Volume 88.2 fl (81-99); Mean Platelet Volume 7.7 fl (7.4-10.4); Monocytes # 0.4 K/mm3 (0.1-1.0); Monocytes % 4.3 % (1.7-9.3); Neutrophils # 5.4 K/mm3 (1.8-7.8); Neutrophils % 62.6 % (37.0-80.0); Platelet Count 343 K/mm3 (142-424); Red Blood Count 4.74 M/mm3 (4.20-5.40); Red Cell Distribution Width 12.6 % (11.5-17.5); White Blood Count 8.6 K/mm3 (4.8-10.8)
[2022-10-22 18:27] LABS: Alanine Aminotransferase 20 U/L (12-78); Albumin Level 5.1 g/dl (3.5-5.0); Alkaline Phosphatase 56 U/L (38-126); Aspartate Amino Transferase 27 U/L (14-36); Bilirubin,Total 0.5 mg/dl (0.2-1.3); Blood Urea Nitrogen 15 mg/dl (7-17); Calcium 9.2 mg/dl (8.4-10.2); Carbon Dioxide 29 mmol/L (22.0-30.0); Chloride 94 mmol/L (98-107); Chol/HDL Ratio 1.9 (1-3.5); Cholesterol 178 mg/dl (140-200); Estimated Glomerular Filt Rate 97 ml/min (>60); GFR (African American) 117 ML/MIN (>60); Globulin 2.6 g/dL (1.3-3.2); Glucose 95 mg/dl (74-100); HDL Cholesterol 92 mg/dl (40-60); Sodium 138 mmol/L (136-145); Total Protein,Serum 7.7 g/dl (6.3-8.2); Triglycerides 46 mg/dl (30-150); VLDL Cholesterol 9 mg/dL (0-40)
[2022-10-22 18:38] LABS: Direct LDL Cholesterol 84.08 mg/dL (100-129)
[2022-10-22 18:39] LABS: C-Reactive Protein < 0.3 mg/L (0-4)
[2022-10-22 18:45] LABS: Erythrocyte Sedimentation Rate 7 mm/hr (0-20)
[2022-10-22 18:47] LABS: 25-OH Vitamin D, Total 56.7 ng/mL (30-100)
[2022-10-22 19:00] LABS: Thyroid Stimulating Hormone 4.57 uIU/mL (0.465-4.68)
[2022-10-22 19:19] LABS: Vitamin B12 637 pg/mL (239-931)
[2022-10-24 12:10] LABS: RA Latex Turbid. 18.6 IU/mL (<14.0)
[2022-10-24 16:08] LABS: Anti-Cyclic Citrullinated Pept 8 units (0-19)
[2022-10-26 15:09] LABS: Anti-Centromere B Antibodies <0.2 AI (0.0-0.9); Anti-DNA (DS) Ab Qn <1 IU/mL (0-9); Anti-Jo-1 <0.2 AI (0.0-0.9); Anti-Smith Antibody <0.2 AI (0.0-0.9); Antichromatin Antibodies <0.2 AI (0.0-0.9); Antiscleroderma-70 Antibodies <0.2 AI (0.0-0.9); RNP Antibodies <0.2 AI (0.0-0.9); Sjogren's Anti-SS-A 0.3 AI (0.0-0.9); Sjogren's Anti-SS-B <0.2 AI (0.0-0.9)
== END ==
LOC: LAB.DROPOF 23:43
PROVIDERS: PCP Physician Assistant; Visit Provider Physician Assistant
DX: M25.50 Pain in unspecified joint (principal)
CPT/HCPCS: 80053; 80061; 82306; 82607; 84443; 85025; 85651; 86140; 86200; 86225; 86235; 86431

== ENCOUNTER → 2022-10-26 15:16 | Outpatient (CLI) | payer OTHER, SELFPAY ==
[2022-10-28 08:23] LABS: HBsAg Screen Negative (Negative); HCV Ab Non Reactive (Non Reactive); Hep A Ab, IGM Negative (Negative); Hep B Core Ab, IgM Negative (Negative)
[2022-10-28 14:26] LABS: Anti-DNA (DS) Ab Qn <1 IU/mL (0-9)
== END ==
PROVIDERS: PCP Physician Assistant; Visit Provider Physician Assistant
DX: M25.50 Pain in unspecified joint (principal); M06.9 Rheumatoid arthritis, unspecified; R14.0 Abdominal distension (gaseous)
CPT/HCPCS: 36415; 80074; 86225

== ENCOUNTER → 2022-11-03 06:53 | Outpatient (CLI) | payer OTHER, SELFPAY ==
--- NOTE | 2022-11-03 06:54 | CT_ITS ---
FINAL REPORT TECHNIQUE: Axial images through the abdomen and pelvis were performed without contrast. This study was performed with techniques to keep radiation doses as low as reasonably achievable, (ALARA). Individualized dose reduction techniques using automated exposure control or adjustment of mA and/or kV according to the patient's size were employed. CLINICAL HISTORY: RA factor elevated, abd pain and bloating FINDINGS: ABDOMEN: There is a localized airspace opacity in the right lower lobe, probably due to acute pneumonia. The heart size is normal. Limited images of the liver are unremarkable. The gallbladder is present. The spleen is normal. No adrenal mass is identified. The aorta is normal in caliber. There is no significant free fluid or adenopathy. There is no nephrolithiasis. There is no hydronephrosis. PELVIS: The appendix is not identified. There is a large amount of stool throughout the colon. The uterus is retroverted. The urinary bladder is unremarkable. There is a minimal amount of pelvic free fluid, probably physiologic. IMPRESSION: Right lower lobe airspace opacity, probably due to acute pneumonia. Minimal pelvic free fluid, likely physiologic. Reviewed, Interpreted and Dictated by Julio C Prince MD Transcribed by Rebecca Bernard Authenticated and [facility]
== END ==
PROVIDERS: PCP Physician Assistant; Visit Provider Physician Assistant
DX: M06.9 Rheumatoid arthritis, unspecified (principal)
CPT/HCPCS: 74176

== ENCOUNTER → 2022-11-11 07:16 | Outpatient (CLI) | payer OTHER, SELFPAY ==
--- NOTE | 2022-11-11 07:17 | CT_ITS ---
FINAL REPORT TECHNIQUE: This study was performed using automated techniques to achieve radiation exposure as low as reasonably achievable CLINICAL HISTORY: RLL pneumonia COMPARISON: 01/25/2020 FINDINGS: CT CHEST without contrast TECHNIQUE: Axial CT without IV contrast administration. FINDINGS: No acute lung disease is present . There is a chronic ground-glass opacity, peripheral in the right lower lobe corresponding to the recent abnormality identified on abdominal CT. However, the appearance is completely stable since 2019 indicating a benign presumably postinflammatory lesion. No new pulmonary lesions are identified in the remainder of the lungs are clear. No pleural or pericardial effusion is seen . No adenopathy or mass lesion is present . IMPRESSION: Chronic ground-glass opacity in the right lower lobe accounting for the lesion seen on recent chest CT. Considered benign given stability for 2 years. Reviewed, Interpreted and Dictated by Vanessa Dennis MD Transcribed by Comfort Denny Authenticated and [facility]
== END ==
PROVIDERS: PCP Physician Assistant; Visit Provider Physician Assistant
DX: J18.1 Lobar pneumonia, unspecified organism (principal)
CPT/HCPCS: 71250

== ENCOUNTER 2023-02-17 13:42 | Emergency (ER) | payer OTHER, SELFPAY ==
[2023-02-17 13:44] VITALS: BP 111/69; PULSE 105; RESP 16; TEMP 36.9; O2SAT 99; BMI 20.7
[2023-02-17 13:56] VITALS: BMI 20.7
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
[2023-02-17 14:31] LABS: Basophils # 0.1 K/mm3 (0-0.2); Basophils % 0.9 % (0.1-2.0); Eosinophils # 0.2 K/mm3 (0.0-0.4); Eosinophils % 2.8 % (0.1-12.0); Hemoglobin 14.2 g/dL (12.2-16.2); Lymphocytes # 2.6 K/mm3 (0.7-4.5); Lymphocytes % 32.5 % (10-50); Mean Corpuscular Hemoglobin 28.9 pg (27.0-31.2); Mean Corpuscular Volume 87.4 fl (81-99); Mean Platelet Volume 7.4 fl (7.4-10.4); Monocytes # 0.3 K/mm3 (0.1-1.0); Monocytes % 3.8 % (1.7-9.3); Neutrophils # 4.7 K/mm3 (1.8-7.8); Neutrophils % 60.1 % (37.0-80.0); Platelet Count 334 K/mm3 (142-424); Red Blood Count 4.92 M/mm3 (4.20-5.40); Red Cell Distribution Width 12.5 % (11.5-17.5); White Blood Count 7.8 K/mm3 (4.8-10.8)
[2023-02-17 14:38] VITALS: BP 111/69; PULSE 98; RESP 16; TEMP 36.9; O2SAT 98
[2023-02-17 14:42] LABS: Activated Partial Thrombo Time 28.2 seconds (22.8-30.6); INR 0.99 (0.9-1.1); Prothrombin Time 10.7 seconds (10.1-12.5)
--- NOTE | 2023-02-17 14:44 | PC.NURSE ---
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 Lab completed their lab and UDS per protocol.
[2023-02-17 14:45] LABS: Alanine Aminotransferase 19 U/L (12-78); Albumin Level 4.9 g/dl (3.5-5.0); Alkaline Phosphatase 59 U/L (38-126); Aspartate Amino Transferase 30 U/L (14-36); Bilirubin,Direct 0.1 mg/dl (0.0-0.4); Bilirubin,Indirect 0.2 mg/dL (0.0-0.9); Bilirubin,Total 0.3 mg/dl (0.2-1.3); Bilirubin,Unconjugated 0.3 mg/dL (0.0-1.1); Total Protein,Serum 7.8 g/dl (6.3-8.2)
[2023-02-19 11:55] LABS: HIV Screen 4th Generation wRfx Non Reactive (Non Reactive)
[2023-02-22 12:55] LABS: Hepatitis B Surface Antigen Negative
[2023-02-22 12:56] LABS: Hepatitis B Surf Ab Quant 22.5; Hepatitis C Antibody Non Reactive
== END 2023-02-17 14:45 | disposition home or self-care (01) ==
PROVIDERS: Emergency Provider Emergency Medicine; PCP Physician Assistant
DX: Z77.21 Contact with and (suspected) exposure to potentially hazardous body fluids (principal); M06.9 Rheumatoid arthritis, unspecified; Y99.0 Civilian activity done for income or pay
CPT/HCPCS: 36415; 80076; 85025; 85610; 85730; 86703; 86706; 87340; 87380; 99285; G0432

== ENCOUNTER 2023-06-11 16:09 | Outpatient (CLI) | payer OTHER, SELFPAY ==
[2023-06-22 09:07] LABS: Anti Mullerian Hormone (AMH) 1.33
== END 2023-06-11 23:59 ==
LOC: LAB 16:10
PROVIDERS: PCP Physician Assistant; Visit Provider Obstetrics & Gynecology
DX: O00.202 Left ovarian pregnancy without intrauterine pregnancy (principal)
CPT/HCPCS: 36415; 82397

== ENCOUNTER 2023-07-16 08:48 | Outpatient (CLI) | payer OTHER, SELFPAY ==
--- NOTE | 2023-07-16 08:48 | FL_ITS ---
FINAL REPORT CLINICAL HISTORY: desire for , checking tubes 0.32 min DAP 139.68 FINDINGS: FLUOROSCOPY LESS THAN 1 HOUR HISTORY: Fluoroscopy guidance. Fluoroscopic guidance was provided for hysterosalpingography. A single spot film was obtained. A total of 0.32 minutes of fluoroscopy time were used. Peritoneal spillage of contrast from fallopian tubes bilaterally was noted. Total DAP: 139.68 mGy IMPRESSION: As above. Reviewed, Interpreted and Dictated by John Paulino III, MD Transcribed by Dalia Robbins Authenticated and [facility]
--- NOTE | 2023-07-16 09:33 | P.PCN_ITS ---
[facility] Procedure Note Date: 07/16/23 Time: 09:15 Procedure Note:: Findings: bilateral patent fallopian tubes without hydrosalpinx. Unicoirnuate uterus noted. Patient was positioned in the dorsal lithotomy position. Speculum was inserted. Cervix and vagina was cleansed with Hibiclens. Tenaculum was placed on anterior lip of the cervix. 20 cc of contrast was drawn up into a syringe and attached to the Christiane HSG cannula. Contrast was flushed through cannula to remove air bubbles and ensure patency. Cannula was then inserted into the cervix. Fluoroscopy was initiated with 15 cc of contrast injected into the endometrial cavity. Fluoroscopy demonstrated contrast immediately flowing from endometrial cavity through bilateral fallopian tubes revealing patent bilateral fallopian tubes. Cavity appeared unicornuate and an additonal 15mL of contrast was pushed to verify. Confirmation of unicornuate uterus. Cannula was removed from the cervix. Tenaculum was removed from the cervix. Hemostasis was noted. Speculum removed from the vagina. Patient tolerated the procedure well. Findings were reviewed with the patient. She is planning to have Lasix Eye surgery and they recommended delaying for 6months. We briefly discussed TONY referral and imaging to evaluate for kidney abnormalities. Pt will follow up in the office in 2weeks.
[2023-07-16] MEDS: IOPAMIDOL-370 (76%);100ML BOTTLE 40 ML IV (09:55)
== END 2023-07-16 23:59 ==
LOC: RAD 08:48
PROVIDERS: PCP Physician Assistant; Visit Provider Obstetrics & Gynecology
DX: N97.1 Female infertility of tubal origin (principal); Z31.9 Encounter for procreative management, unspecified
CPT/HCPCS: 74740; Q9967

== ENCOUNTER 2023-08-10 12:18 | Outpatient (CLI) | payer OTHER, SELFPAY ==
[2023-08-10 13:22] LABS: HCG,Quantitative < 2 mIU/ml (0-5.42)
[2023-08-11 14:43] LABS: Progesterone 1.9 ng/mL (.)
== END 2023-08-10 23:59 ==
LOC: LAB 12:18
PROVIDERS: PCP Physician Assistant; Visit Provider Obstetrics & Gynecology
DX: N92.6 Irregular menstruation, unspecified (principal)
CPT/HCPCS: 36415; 84144; 84702

== ENCOUNTER 2023-08-11 15:26 | Outpatient (CLI) | payer OTHER, SELFPAY ==
--- NOTE | 2023-08-11 15:27 | US_ITS ---
FINAL REPORT TECHNIQUE: Ultrasound images of the kidneys and bladder were obtained. CLINICAL HISTORY: .hx of unicoruate uterus-- eval for bilat kidneys FINDINGS: The right kidney measures 11.2 cm in length. It is normal in echogenicity. There is no hydronephrosis. The left kidney measures 11.9 cm in length. It is normal in echogenicity. There is no hydronephrosis. The spleen is unremarkable. IMPRESSION: Unremarkable renal ultrasound. Reviewed, Interpreted and Dictated by John Paulino III, MD Transcribed by Rebecca Bernard Authenticated and [facility]
== END 2023-08-11 23:59 ==
LOC: RAD 15:27
PROVIDERS: PCP Physician Assistant; Visit Provider Obstetrics & Gynecology
DX: Q63.1 Lobulated, fused and horseshoe kidney (principal)
CPT/HCPCS: 76770

== ENCOUNTER 2023-08-13 14:21 | Outpatient (CLI) | payer OTHER, SELFPAY ==
[2023-08-14 15:50] LABS: Progesterone 0.2 ng/mL (.)
== END 2023-08-13 23:59 ==
LOC: LAB 14:22
PROVIDERS: PCP Physician Assistant; Visit Provider Obstetrics & Gynecology
DX: N92.6 Irregular menstruation, unspecified (principal)
CPT/HCPCS: 36415; 84144

== ENCOUNTER 2023-08-31 09:10 | Outpatient (POV) | payer OTHER, SELFPAY | END 2023-08-31 23:59 | disposition home or self-care (01) | LOC: SC 09:11 | PROVIDERS: PCP Physician Assistant; Visit Provider Dermatology | DX: Z00.00 Encounter for general adult medical examination without abnormal findings (principal) ==

== ENCOUNTER 2023-09-02 07:48 | Outpatient (CLI) | payer OTHER, SELFPAY ==
[2023-09-03 11:14] LABS: Progesterone 12.5 ng/mL (.)
== END 2023-09-02 23:59 ==
LOC: LAB 07:49
PROVIDERS: PCP Physician Assistant; Visit Provider Obstetrics & Gynecology
DX: E28.2 Polycystic ovarian syndrome (principal); Q51.4 Unicornate uterus
CPT/HCPCS: 36415; 84144

== ENCOUNTER 2024-01-04 10:35 | Outpatient (POV) | payer OTHER, SELFPAY | END 2024-01-04 23:59 | disposition home or self-care (01) | LOC: SC 10:36 | PROVIDERS: PCP Physician Assistant; Visit Provider Dermatology | DX: Z00.00 Encounter for general adult medical examination without abnormal findings (principal) ==

== ENCOUNTER 2024-04-18 14:09 | Outpatient (CLI) | payer OTHER, SELFPAY ==
[2024-04-19 14:31] LABS: FSH 9.9 mIU/mL (.); LH 10.7 mIU/mL (.); Progesterone 0.1 ng/mL (.)
[2024-04-29 04:17] LABS: Anti Mullerian Hormone (AMH) 1.13 ng/mL (.)
== END 2024-04-18 23:59 | disposition home or self-care (01) ==
LOC: LAB 14:10
PROVIDERS: PCP Physician Assistant; Visit Provider Obstetrics & Gynecology
DX: E28.2 Polycystic ovarian syndrome (principal)
CPT/HCPCS: 36415; 82397; 83001; 83002; 84144

== ENCOUNTER 2024-04-24 14:36 | Outpatient (CLI) | payer OTHER, SELFPAY ==
--- NOTE | 2024-04-24 14:37 | US_ITS ---
PROCEDURE: US TRANSVAGINAL CLINICAL INDICATION: Follicle Scan DAY 11-14 COMPARISON: RF FL HYSTEROSALPINGOGRAPHY from 07/16/2023 FINDINGS: Transvaginal sonographic images of the pelvis were obtained. UTERUS: 9.0cm x 6.3cmx 3.7 cm anteverted with a combined endometrial thickness of 4.4mm. The endometrium is trilaminar. There is an anterior fibroid measuring 0.8 cm x 0.7 cm x 0.4 cm LEFT OVARY: 3.5 cmx2.0cmx2.2cm with a volume of 8.2ml. Follicle 1. 1.78 cm Follicle 2. 0.37 cm Follicle 3. 0.79 cm Follicle 4. 0.44 cm Follicle 5. 0.54 cm RIGHT OVARY: 3.7 cmx 3.6x2.6 cm with a volume of 18.4ml. Follicle 1. 2.26 cm Follicle 2. 1.53 cm Follicle 3. 1.18 cm Follicle 4. 0.82 cm Follicle 5. 0.49 cm Both ovaries are seen and appear normal. Doppler flow to both ovaries are seen. There is no fluid in the cul-de-sac. IMPRESSION: 1. Anteverted uterus normal in shape and size. The endometrium is thin and trilaminar measuring 4.4 mm. 2. There is a small anterior fibroid measuring 0.8 cm. 3. Both ovaries are seen and contain multiple follicles. 4. No fluid in the cul-de-sac. Dictated by: Bill Moody MD 04/24/2024 16:52 Bill Moody MD in [place] 04/24/2024 16:52
== END 2024-04-24 23:59 | disposition home or self-care (01) ==
LOC: RAD 14:37
PROVIDERS: PCP Physician Assistant; Visit Provider Obstetrics & Gynecology
DX: E28.2 Polycystic ovarian syndrome (principal)
CPT/HCPCS: 76830

== ENCOUNTER 2024-05-12 11:45 | Outpatient (CLI) | payer OTHER, SELFPAY ==
[2024-05-12 13:16] LABS: HCG,Quantitative < 2 mIU/ml (0-5.42)
[2024-05-13 09:20] LABS: Progesterone 0.8 ng/mL (.)
== END 2024-05-12 23:59 | disposition home or self-care (01) ==
LOC: LAB 11:46
PROVIDERS: PCP Physician Assistant; Visit Provider Obstetrics & Gynecology
DX: Z32.00 Encounter for pregnancy test, result unknown (principal)
CPT/HCPCS: 36415; 84144; 84702

== ENCOUNTER 2024-08-07 12:29 | Outpatient (CLI) | payer OTHER, SELFPAY ==
[2024-08-07 14:02] LABS: HCG,Quantitative 1168 mIU/ml (0-5.42)
[2024-08-08 03:36] LABS: Progesterone 26.1 ng/mL (.)
== END 2024-08-07 23:59 | disposition home or self-care (01) ==
PROVIDERS: PCP Physician Assistant; Visit Provider Obstetrics & Gynecology
DX: Z32.01 Encounter for pregnancy test, result positive (principal)
CPT/HCPCS: 36415; 84144; 84702

== ENCOUNTER 2024-08-09 07:06 | Outpatient (CLI) | payer OTHER, SELFPAY ==
[2024-08-09 08:56] LABS: HCG,Quantitative 4110 mIU/ml (0-5.42)
== END 2024-08-09 23:59 | disposition home or self-care (01) ==
LOC: LAB 07:07
PROVIDERS: PCP Physician Assistant; Visit Provider Obstetrics & Gynecology
DX: Z32.01 Encounter for pregnancy test, result positive (principal)
CPT/HCPCS: 36415; 84702

== ENCOUNTER 2024-08-16 13:08 | Outpatient (CLI) | payer OTHER, SELFPAY ==
[2024-08-16 16:49] LABS: HCG,Quantitative 38642 mIU/ml (0-5.42)
== END 2024-08-16 23:59 | disposition home or self-care (01) ==
LOC: LAB 13:09
PROVIDERS: PCP Physician Assistant; Visit Provider Obstetrics & Gynecology
DX: Z34.90 Encounter for supervision of normal pregnancy, unspecified, unspecified trimester (principal)
CPT/HCPCS: 36415; 84702

== ENCOUNTER 2024-08-21 13:22 | Outpatient (CLI) | payer OTHER, SELFPAY ==
--- NOTE | 2024-08-21 13:23 | US_ITS ---
PROCEDURE: US OB <= 14 WEEKS FETUS CLINICAL INDICATION: Dates and Confirmation COMPARISON: US US TRANSVAGINAL from 04/24/2024 FINDINGS: Transvaginal sonographic images of the pelvis were obtained. The uterus is retroverted. From her last menstrual period she is 6weeks 1day. An intrauterine gestational sac is present with a pole with a crown-rump length of 0.47cm This correlates to a gestational age of 6weeks 2days. DASHA 04/14/2025 heart tones are present with an FHR of 121bpm. Yolk sac is noted. The yolk sac measures 5.5mm. The right ovary is seen and appears normal. There is a 1.7 cm follicle in the right ovary likely a corpus luteum. The left ovary is seen and appears normal. There is a small amount of fluid in the cul-de-sac. IMPRESSION: 1. Retroverted uterus. 2. There is a viable embryo within the uterine cavity measuring 6 weeks 2 days. DASHA 04/14/2025. 3. cardiac activity is seen. 4. Both ovaries are seen and appear normal. There appears to be a corpus luteum on the right ovary. 5. There is a small amount of fluid in the cul-de-sac. Dictated by: Bill Moody MD 08/21/2024 14:22 Bill Moody MD in [place] 08/21/2024 14:22
== END 2024-08-21 23:59 | disposition home or self-care (01) ==
LOC: RAD 13:23
PROVIDERS: PCP Physician Assistant; Visit Provider Obstetrics & Gynecology
DX: O36.80X0 Pregnancy with inconclusive fetal viability, not applicable or unspecified (principal); Z3A.01 Less than 8 weeks gestation of pregnancy
CPT/HCPCS: 76801

== ENCOUNTER 2024-08-29 13:02 | Outpatient (CLI) | payer OTHER, SELFPAY ==
[2024-08-29 13:23] LABS: Basophils % 0.3 % (0.1-2.0); Eosinophils # 0.1 K/mm3 (0.0-0.4); Eosinophils % 1.4 % (0.1-12.0); Hematocrit 35.8 % (37.0-47.0); Hemoglobin 12.4 g/dL (12.2-16.2); Lymphocytes # 1.6 K/mm3 (0.7-4.5); Lymphocytes % 24.4 % (10-50); Mean Corpuscular HGB Conc 34.6 g/dL (31.8-35.4); Mean Corpuscular Volume 83.6 fl (81-99); Monocytes # 0.5 K/mm3 (0.1-1.0); Monocytes % 6.8 % (1.7-9.3); Neutrophils # 4.4 K/mm3 (1.8-7.8); Neutrophils % 66.9 % (37.0-80.0); Platelet Count 239 K/mm3 (142-424); Red Blood Count 4.28 M/mm3 (4.20-5.40); Red Cell Distribution Width 11.5 % (11.5-17.5); White Blood Count 6.6 K/mm3 (4.8-10.8)
[2024-08-29 14:38] LABS: HIV Combo NEGATIVE (Negative)
[2024-08-29 15:17] LABS: Hepatitis C Ab Qual. W/ RFX NEGATIVE (Negative)
[2024-08-30 09:06] LABS: RPR W/RFX Titers Nonreactive (Nonreactive)
[2024-08-30 10:11] LABS: Hepatitis B Surface Antigen Negative (Negative)
[2024-08-30 11:18] LABS: Rubella Antibodies, IgG 1.41 index (Immune >0.99)
== END 2024-08-29 23:59 | disposition home or self-care (01) ==
LOC: LAB 13:03
PROVIDERS: PCP Physician Assistant; Visit Provider Obstetrics & Gynecology
DX: Z34.91 Encounter for supervision of normal pregnancy, unspecified, first trimester (principal); Z3A.01 Less than 8 weeks gestation of pregnancy
CPT/HCPCS: 36415; 85025; 86592; 86762; 86803; 86850; 87340; 87389

== ENCOUNTER 2024-11-28 08:45 | Outpatient (CLI) | payer OTHER, SELFPAY ==
--- NOTE | 2024-11-28 09:00 | US_ITS ---
PROCEDURE: US OB /MATERNAL DETAIL CLINICAL INDICATION: 20 week anatomy COMPARISON: US US OB <= 14 WEEKS FETUS from 08/21/2024 FINDINGS: Transabdominal sonographic images of the pelvis were obtained. From her established due date she is 20 weeks 2 days. Single viable intrauterine gestation. Breech position. Placenta: Anteriorplacenta grade 1. Placental lakes are present. There is an average amount of fluid. The cervix appears satisfactory. Closed and measuring 3.83 cm in length. Complete survey performed and was unremarkable on the submitted images as in PACS. No discrete anomalies identified on survey imaging by technologist. Active fetus. Three-vessel cord with satisfactory umbilical cord insertion. 4- chamber heart noted. Situs, aortic arch, LVOT, RVOT, three-vessel view appear normal. Survey of brain & ventricles Unremarkable. Cerebellum, thalamus, choroid plexus, cisterna magna appear normal. Face and neck survey unremarkable. Profile, nasion, lips and nose appeared normal. Diaphragm and chest views unremarkable. Abdomen: Both kidneys noted and unremarkable. Stomach and bladder noted and satisfactory. Spine: Survey of the spine satisfactory with no anomalies identified nor imaged. Cervical, thoracic, lower spine appear normal. Both arms and legs noted. Amniotic Fluid: Adequate. MVP 4.38 cm Measurements: Average ultrasound age 20weeks 5days. Estimated due date by ultrasound age 1104/12/2025. Estimated weight 363g BPD = 20weeks 5days HC = 20weeks 5days AC = 20weeks 2days FL = 21weeks 0 days Growth Percentile= 62 Heart Rate = 156bpm Cerebellum = 20weeks 0 days Humerus = 21weeks 1day HC/AC is 1.22 FL/BPD is 0.72 FL/AC is 0.23 IMPRESSION: 1. Viable fetus in the breech presentation with an anterior placenta grade 1. 2. The fluid is within normal limits with an MVP 4.38 cm. 3. Anatomical scan appears normal. 4. biometry is consistent with the dates. Dictated by: Bill Moody MD 11/28/2024 13:06 Bill Moody MD in [place] 11/28/2024 13:06
== END 2024-11-28 23:59 | disposition home or self-care (01) ==
LOC: RAD 08:45
PROVIDERS: PCP Physician Assistant; Visit Provider Obstetrics & Gynecology
DX: O32.1XX0 Maternal care for breech presentation, not applicable or unspecified (principal); O34.02 Maternal care for unspecified congenital malformation of uterus, second trimester; Q51.4 Unicornate uterus; Z3A.20 20 weeks gestation of pregnancy
CPT/HCPCS: 76811

== ENCOUNTER 2025-01-23 06:46 | Outpatient (CLI) | payer OTHER, SELFPAY ==
[2025-01-23 08:27] LABS: Hematocrit 33.1 % (37.0-47.0); Hemoglobin 11.3 g/dL (12.2-16.2); Immature Granulocytes % 1.3 %; Mean Corpuscular HGB Conc 34.1 g/dL (31.8-35.4); Mean Corpuscular Hemoglobin 29.4 pg (27.0-31.2); Mean Corpuscular Volume 86.0 fl (81-99); Nucleated Red Blood Cells % 0 %; Platelet Count 201 K/mm3 (142-424); Red Blood Count 3.85 M/mm3 (4.20-5.40); Red Cell Distribution Width-SD 37.6 fL; White Blood Count 11.0 K/mm3 (4.8-10.8)
[2025-01-23 08:53] LABS: Glucose 1 Hour 84 mg/dL (74-100)
[2025-01-23 15:31] LABS: RPR W/RFX Titers Nonreactive (Nonreactive)
== END 2025-01-23 23:59 | disposition home or self-care (01) ==
LOC: LAB 06:47
PROVIDERS: PCP Physician Assistant; Visit Provider Obstetrics & Gynecology
DX: Z34.82 Encounter for supervision of other normal pregnancy, second trimester (principal); Z3A.00 Weeks of gestation of pregnancy not specified
CPT/HCPCS: 36415; 82947; 85025; 86592

== ENCOUNTER 2025-02-16 07:53 | Outpatient (CLI) | payer OTHER, SELFPAY ==
--- NOTE | 2025-02-16 08:45 | US_ITS ---
PROCEDURE: US OB BIOPHYSICAL PROFILE CLINICAL INDICATION: Needs at 32 weeks for presentation/placental lakes COMPARISON: US US OB <= 14 WEEKS FETUS from 08/21/2024 US US OB /MATERNAL DETAIL from 11/28/2024 FINDINGS: Transabdominal sonographic images of the uterus were obtained. From her established due date she is 31weeks 5days. The following parameters are obtained: Viable Fetus in the cephalic presentation with an anterior placenta grade 2. There are several placental lakes present. Cervix measures 3.17 cm in length Average ultrasound age is 33weeks 1day Estimated weight 2,027g, 4 lb 8 oz Measurements: heart Rate = 138bpm BPD = 33weeks 2days, 82 percentile HC = 34weeks 4days, 86 percentile AC = 32weeks 5days, 75 percentile FL = 32weeks 0 days, 45 percentile HC/AC is 1.08 FL/BPD is 0.75 FL/AC is 0.22 71 percentile Amniotic fluid index: 11.36cm, MVP 5.2 cm Qualitative AFV:2 Breathing movements: 2 Gross Body Movements: 2 Tone: 2 Biophysical profile score: 8 No obvious anomalies evident.Kidneys, profile, stomach, bladder, four-chamber heart, three-vessel cord appear normal. IMPRESSION: 1. Viable fetus in the cephalic presentation with an anterior placenta grade 2. There are several placental lakes present within the placenta. 2. The fluid is within normal limits with an amniotic fluid index 11.36 cm, MVP 5.2 cm. 3. Biophysical profile is 8/8 with good breathing movement and movement seen. 4. There has been good interval growth with the fetus currently 71st percentile. 5. Limited anatomical scan appears normal. Dictated by: Bill Moody MD 02/16/2025 09:26 Bill Moody MD in [place] 02/16/2025 09:26
== END 2025-02-16 23:59 | disposition home or self-care (01) ==
LOC: RAD 07:55
PROVIDERS: PCP Physician Assistant; Visit Provider Obstetrics & Gynecology
DX: O28.3 Abnormal ultrasonic finding on antenatal screening of mother (principal); O32.1XX0 Maternal care for breech presentation, not applicable or unspecified; O34.03 Maternal care for unspecified congenital malformation of uterus, third trimester; Q51.4 Unicornate uterus; Z3A.31 31 weeks gestation of pregnancy
CPT/HCPCS: 76816; 76819

== ENCOUNTER 2025-03-02 07:52 | Outpatient (CLI) | payer OTHER, SELFPAY ==
[2025-03-02 10:12] LABS: Alanine Aminotransferase 29 U/L (12-78); Albumin Level 3.5 g/dl (3.5-5.0); Albumin/Globulin Ratio 1.5 (1.1-1.8); Alkaline Phosphatase 80 U/L (38-126); Anion Gap 10.6 mEq/L (5-15); Aspartate Amino Transferase 30 U/L (14-36); Bilirubin,Total 0.6 mg/dl (0.2-1.3); Blood Urea Nitrogen 6 mg/dl (7-17); Calcium 8.6 mg/dl (8.4-10.2); Carbon Dioxide 25 mmol/L (22.0-30.0); Chloride 102 mmol/L (98-107); Creatinine,Serum 0.50 mg/dl (0.52-1.04); Estimated Glomerular Filt Rate 141 ml/min (>60); GFR (African American) 171 ML/MIN (>60); Globulin 2.4 g/dL (1.3-3.2); Glucose 75 mg/dl (74-100); Potassium 4.6 mmoL/L (3.5-5.1); Sodium 133 mmol/L (136-145); Total Protein,Serum 5.9 g/dl (6.3-8.2)
== END 2025-03-02 23:59 | disposition home or self-care (01) ==
LOC: LAB 07:53
PROVIDERS: PCP Physician Assistant; Visit Provider Obstetrics & Gynecology
DX: O99.719 Diseases of the skin and subcutaneous tissue complicating pregnancy, unspecified trimester (principal); L29.9 Pruritus, unspecified
CPT/HCPCS: 36415; 80053; 82239

== ENCOUNTER 2025-03-30 10:30 | Outpatient (CLI) | payer OTHER, SELFPAY | END 2025-03-30 23:59 | LOC: LAB.DROPOF 04-02 10:30 | PROVIDERS: PCP Physician Assistant; Visit Provider Obstetrics & Gynecology | DX: O99.719 Diseases of the skin and subcutaneous tissue complicating pregnancy, unspecified trimester (principal); L29.9 Pruritus, unspecified; O34.00 Maternal care for unspecified congenital malformation of uterus, unspecified trimester; Q51.4 Unicornate uterus; Z3A.00 Weeks of gestation of pregnancy not specified | CPT/HCPCS: 86403 ==

== ENCOUNTER 2025-04-13 09:15 | Inpatient (IN) | payer OTHER, SELFPAY ==
--- NOTE | 2025-04-13 09:19 | EXP.HP ---
History of Present Illness *Admission Date: 04/13/25 *Reason for visit:: induction *History of present illness: Jeannine Garsia is a 35yo -0-2-2 who presented to labor and delivery today for labor augmentation. has been uncomplicated. On presentation the patient endorsed some light vaginal bleeding. Denies any leakage of fluid and endorses good movements. She has been having irregular contractions A+, antibody negative, rubella immune, hepatitis B negative, hepatitis C negative, RPR negative, HIV negative 1 hour GTT: 84 GBS negative PFSH PFS Disclaimer: The information contained in this section may have been updated after the patient was seen, as this information can be updated by other users. Medical History Pruritus of Unicornuate uterus affecting , antepartum Ganglion cyst bilateral cyst Rheumatoid arthritis Ectopic Abnormal EKG Tachycardia Palpitations Dyspnea Surgical History History of surgery on wrist Hx of LASIK History of placement of ear tubes History of tonsillectomy and adenoidectomy Family History Other Alcoholism Anemia Cancer Coronary artery disease Diabetes Heart attack Hyperlipidemia Hypertension Substance abuse Social History Smoking Status: Never smoker alcohol intake: never substance use type: denies use current occupational status: employed Travel in the last 8 weeks?: None household members: spouse housing: house 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: No Are you experiencing loss of taste or smell?: No Other Medical History Have you received the Flu Vaccine for this season: Yes Have you received the Pneumonia Vaccine: No Review of Systems Review of Systems Review of systems (narrative): Review of Systems Constitutional: Denies fever, chills, and sweats Eyes: Denies vision change/ pain Respiratory: Denies cough and shortness of breath Cardiovascular: Denies chest pain and lightheadedness Gastrointestinal: Admits abdominal pain with contractions. Denies nausea, vomiting. Genitourinary: Denies dysuria and incontinence Musculoskeletal: Denies shoulder pain and back pain Neurological: Denies change in speech or headaches Meds Home Medications and Allergies Home Medications ?Medication ?Instructions ?Recorded ?Confirmed ?Type OUA-dvhg-QQ-omega 3 fatty no.1 27 cap PO 10/22/22 04/11/25 History mg-1 mg-300 mg capsule New Prescriptions to Start Prescriptions: Allergies Allergy/AdvReac Type Severity Reaction Status Date / Time No Known Allergies Allergy Verified 04/11/25 08:44 Exam Data for Last 24 hours Narrative: General: patient is alert oriented in no acute distress and responds appropriately to questions. HEENT: NCAT, EOMI, moist mucous membranes, neck supple with full ROM Cardiovascular: RRR +S1/S2, no murmurs or rubs Pulmonary: Clear to auscultation bilaterally, nonlabored breathing, symmetric chest rise Abdominal: Gravid abdomen appropriate for gestation. No guarding, rebound, or tenderness noted. Extremities: trace edema, no tenderness or cyanosis noted Skin: Normal turgor, intact, warm. Negative for erythema, pallor, petechia, or lesions Neurologic: Negative for sensory or motor deficit Psychiatric: Normal affect, normal thought process, good judgment and insight, no depression or anxious mood appreciated. *Routine HEENT Exam Head: Present normocephalic and atraumatic Eye: Present EOMI, PERRL and normal accommodation; Absent conjunctival icterus, scleral injection, nystagmus or exophthalmos ENT: Present mucous membranes moist *Routine Respiratory Exam Respiratory: Present CTA bilaterally, normal respiratory effort, able to speak in complete sentences and symmetric chest movement; Absent accessory muscle use, decreased breath sounds, rales, respiratory distress, wheezes, distant breath sounds or diminished air movement *Routine Cardiovascular Exam Cardiovascular: Present RRR, Normal S1 and Normal S2; Absent murmur or gallop *Routine Abdominal Exam Abdominal: Present soft and normoactive bowel sounds; Absent tenderness, distended, rebound or guarding *Routine Rectal Exam Rectal:: deferred *Routine Genitalia Exam Genitalia:: normal female Assessment and Plan *Assessment and plan (1) Unicornuate uterus affecting , antepartum: Status: Acute Category: Medical Code(s): O34.00 - Maternal care for unspecified congenital malformation of uterus, unspecified trimester; Q51.4 - Unicornate uterus Plan - Monitor vitals - Admit to L&D for labor monitoring and delivery - Plan for augmentation of labor with AROM and pitocin if required. - External FHR and TOCO monitor - Exam on admission: /-3 - GBS neg/ Blood type: A+ - Hemoglobin: 11.3, Plt: 201 - Plan for epidural anesthesia - Anticipate vaginal delivery
[2025-04-13 09:34] VITALS: BP 117/68; PULSE 109; RESP 16; TEMP 37; O2SAT 97; BMI 29.0
[2025-04-13 10:21] LABS: Hematocrit 33.2 % (37.0-47.0); Hemoglobin 10.9 g/dL (12.2-16.2); Immature Granulocytes % 0.6 %; Mean Corpuscular HGB Conc 32.8 g/dL (31.8-35.4); Mean Corpuscular Hemoglobin 26.4 pg (27.0-31.2); Mean Corpuscular Volume 80.4 fl (81-99); Nucleated Red Blood Cells % 0 %; Platelet Count 195 K/mm3 (142-424); Red Blood Count 4.13 M/mm3 (4.20-5.40); Red Cell Distribution Width-SD 35.8 fL; White Blood Count 14.2 K/mm3 (4.8-10.8)
[2025-04-13] MEDS: DEXTROSE 5%-LACTATED RINGERS 1,000 ML 125 ML IV (11:20)
[2025-04-13] MEDS: OXYTOCIN/RINGERS LACTATE 30 UNITS/500 ML BAG IV (11:20)
[2025-04-13 11:45] LABS: Microscopic, Urine URINE MICROSCOPIC (MICROSCOPIC)
[2025-04-13 12:03] LABS: Bilirubin,Urine Negative (Negative); Color,Urine YELLOW (Yellow); Glucose,Urine (UA) Negative (Negative); Ketones,Urine Negative (Negative); Leukocyte Esterase,Urine 2+ (Negative); PH,Urine 6.5 (5.0-8.5); Protein,Urine Negative (Negative); Specific Gravity, Urine <= 1.005 (1.005-1.030); Urobilinogen,Urine 0.2 EU/dl (0.2)
[2025-04-13 12:22] LABS: Bacteria,Urine 1+ /lpf; RBC,Urine 20-50 #/hpf (0-3)
[2025-04-13] MEDS: LACTATED RINGERS 1000ML 1,000 ML 999 ML IV (13:30)
--- NOTE | 2025-04-13 14:31 | EXP.ANES.CKL ---
[facility] Disclaimer: The information contained in this section may have been updated after the patient was seen, as this information can be updated by other users. Medical History Pruritus of Unicornuate uterus affecting , antepartum Ganglion cyst bilateral cyst Rheumatoid arthritis Ectopic Abnormal EKG Tachycardia Palpitations Dyspnea Surgical History History of surgery on wrist Hx of LASIK History of placement of ear tubes History of tonsillectomy and adenoidectomy Family History Other Alcoholism Anemia Cancer Coronary artery disease Diabetes Heart attack Hyperlipidemia Hypertension Substance abuse Social History Smoking Status: Never smoker alcohol intake: never substance use type: denies use current occupational status: employed Travel in the last 8 weeks?: None household members: spouse housing: house 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: No Are you experiencing loss of taste or smell?: No [facility] Anesthesia Checklist Patient Identification Patient Identification: Arm Band and Verbal (Name & ) Structural Data Admitted From: Inpatient Planned Operative Procedure/s: Labor Epidural Consent for Planned Operative Procedure(s) Verified: Yes Verified Documents: Surgical Consent NPO Status Verified Time NPO: 00:00 Chart Verification Results Verified: CBC and BMP Additional verifications Patient : Yes Anesthesia Reactions: No Hx Blood Transfusions: No Blood Transfusion Reaction: No Airway Assessment Mallampati Score:: Class II C-Spine Mobility Assessed: Yes TMJ Mobility Assessed: Yes Dentition: Good Dentition Neurological Assessment Level of Consciousness: Awake, Alert and Appropriate Hx Seizures: No Numbness or tingling in extremities: No Anesthesia Plan Anesthesia Risk discussed: Yes Anesthesia Plan: Verified ASA Class: II Anesthesia Type: Epidural
[2025-04-13] MEDS: ONDANSETRON 4MG/2ML VIAL 4 MG IV (15:47)
[2025-04-13 16:19] LABS: RPR W/RFX Titers Nonreactive (Nonreactive)
[2025-04-13] MEDS: OXYTOCIN/RINGERS LACTATE 30 UNITS/500 ML BAG 999 UNITS IV (17:52)
--- NOTE | 2025-04-13 18:00 | EXP.DN ---
Delivery Note Delivery Date:: 04/13/25 Delivery Time:: 17:47 Anesthesia Type: Epidural Was labor medically induced?: Yes Induction method: per pitocin protocol Gestational age (weeks): 39 delivered prior to 39 weeks?: No Infant Gender: Female at 1 minute: 8 at 5 minutes: 10 Delivery Procedure:: Preoperative diagnosis: 1. at 39w 6d completed this weeks gestation, vertex 2. Rh positive 3. GBS negative 4. Advanced Maternal Age Postoperative diagnosis: same EBL: 50mL Specimen: 1. Cord blood Findings: 1. Liveborn viable female : undecided. Apgars 8/10 at 1 and 5 minutes respectively. Weight pending at time of dictation Complications: None Procedure: Nonoperative spontaneous vaginal delivery Jeannine Garsia is a very pleasant 35yo who presented to the office today after having painful contractions throughout the night. She is noted to be 4 cm and sent to labor and delivery for induction of labor. Induction was completed with Pitocin and amniotomy revealing clear fluid. Jeannine received an epidural for anesthesia. She progressed to complete. FHT were reassuring throughout labor. The was noted to be in ROT position and slowly rotated to RODRICK for delivery. With effective maternal pushing there was a nonoperative spontaneous vaginal delivery at 1747 there was no nuchal cord. The anterior left shoulder delivered, followed by the posterior shoulder without dystocia. The body and lower extremities delivered without difficulty. The was bulb suctioned and was crying immediately following delivery. The was placed on the maternal abdomen and greater than two minutes were appreciated for delayed cord clamping. The umbilical cord was doubly clamped and cut by the FOB. Cord blood was collected and sent for routine testing. The placenta delivered with cord traction and suprapubic contertraction. Pitocin was started. The uterus was firm and bleeding was minimal. The perineum, vaginal biswas, cervix, and paraurethral area were inspected thoroughly and noted to be free of laceration. This concluded the delivery. The patient was counseled regarding the events of the delivery. The patient tolerated the delivery well. All counts were correct by nursing. Mother and infant were doing well and bonding upon my leaving the delivery room. Placental Delivery Description: Spontaneous
[2025-04-13 19:30] VITALS: BP 107/59; PULSE 93; RESP 18; TEMP 36.7; O2SAT 99
[2025-04-14 05:10] VITALS: BP 110/53; PULSE 94; RESP 16; TEMP 36.7; O2SAT 97
[2025-04-14 07:32] LABS: Hematocrit 34.2 % (37.0-47.0); Hemoglobin 11.0 g/dL (12.2-16.2); Immature Granulocytes % 0.6 %; Mean Corpuscular HGB Conc 32.2 g/dL (31.8-35.4); Mean Corpuscular Hemoglobin 26.6 pg (27.0-31.2); Mean Corpuscular Volume 82.6 fl (81-99); Nucleated Red Blood Cells % 0 %; Platelet Count 183 K/mm3 (142-424); Red Blood Count 4.14 M/mm3 (4.20-5.40); Red Cell Distribution Width-SD 38.7 fL; White Blood Count 18.1 K/mm3 (4.8-10.8)
[2025-04-14 08:25] VITALS: BP 121/58; PULSE 100; RESP 18; TEMP 36.9; O2SAT 95
--- NOTE | 2025-04-14 14:46 | P.PN_ITS ---
Subjective *Date: 04/14/25 *Time: 14:46 Interval history: Jeannine Garsia is a pleasant 35-year-old day #1 following a normal spontaneous vaginal delivery at 39 weeks and 6 days gestation. was uncomplicated. Routine delivery and course. She is doing well, sitting up in bed, and visiting with family this morning. -Reports pain is well-controlled -Reports she is tolerating p.o. without nausea or vomiting. -Reports her lochia is scant. -Undecided on contraception -She is breast-feeding her female infant -Ambulating, voiding difficulty or dysuria. Denies chest pain shortness of breath or pain in her legs. No further complaints at this time. Exam Data for Last 24 hours Vital signs and Labs for Last 24 Hours: Temp Pulse Resp BP Pulse Ox O2 Del Method 98.4 F 100 H 18 121/58 L 95 Room Air 04/14/25 08:25 04/14/25 08:25 04/14/25 08:25 04/14/25 08:25 04/14/25 08:25 04/14/25 08:25 Laboratory Results - last 24 hr 04/13/25 10:00: RPR w/Rflx to Titer Nonreactive 04/14/25 07:02: WBC 18.1 H D, RBC 4.14 L, Hgb 11.0 L, Hct 34.2 L, MCV 82.6, MCH 26.6 L, MCHC 32.2, RDW 12.8, Plt Count 183, MPV 9.2, Neut % (Auto) 81.5 H, Lymph % (Auto) 12.1, Daggett % (Auto) 4.7, Eos % (Auto) 0.8, Baso % (Auto) 0.3, Neut # (Auto) 14.8 H, Lymph # (Auto) 2.2, Daggett # (Auto) 0.9, Eos # (Auto) 0.2, Baso # (Auto) 0.1 I & O for Last 24 hours: Intake & Output 04/11/25 04/12/25 04/13/25 04/14/25 23:59 23:59 23:59 23:59 Intake Total 7.983 / 2126.983 250 / 250 Balance 2126.983 / 2126.983 250 / 250 Weight 169 lb Narrative: General: patient is alert oriented in no acute distress and responds appropriately to questions. Appears to be in minimal pain. Sitting up in the chair and doing well HEENT: NCAT, EOMI, moist mucous membranes, neck supple with full ROM Cardiovascular: RRR +S1/S2, no murmurs or rubs Pulmonary: Clear to auscultation bilaterally, nonlabored breathing, symmetric chest rise Abdominal: Fundus below the umbilicus, firm, and tenderness appropriate for the period. Extremities: trace edema, no tenderness or cyanosis noted Skin: Normal turgor, intact, warm. Negative for erythema, pallor, petechia, or lesions Neurologic: Negative for sensory or motor deficit Psychiatric: Normal affect, normal thought process, good judgment and insight, no depression or anxious mood appreciated. Assessment and Plan *Assessment and plan (1) Unicornuate uterus affecting , antepartum: Status: Acute Category: Medical Code(s): O34.00 - Maternal care for unspecified congenital malformation of uterus, unspecified trimester; Q51.4 - Unicornate uterus (2) PCOS (polycystic ovarian syndrome): Status: Acute Category: Medical Code(s): E28.2 - Polycystic ovarian syndrome (3) (normal spontaneous vaginal delivery): Status: Acute Category: Medical Code(s): O80 - Encounter for full-term uncomplicated delivery Plan Stable. PPD#1 s/p -IP. -Doing well. VSS. Serial lochia and fundal checks. -Continue with perineal ice packs for discomfort -Hemoglobin: 10.9--> 11.0 -A+/antibody negative -, female -Contraception: undecided -Follow-up 2 weeks for routine visit -Dispo: home in 1-3 days pending mother/infant status
[2025-04-14 16:15] VITALS: BP 106/58; PULSE 108; RESP 17; TEMP 36.8; O2SAT 96
[2025-04-14 20:20] VITALS: BP 107/65; PULSE 93; RESP 16; TEMP 36.9; O2SAT 98
[2025-04-15 04:18] VITALS: BP 105/52; PULSE 89; RESP 16; TEMP 36.8; O2SAT 98
[2025-04-15 08:04] VITALS: BP 118/59; PULSE 95; RESP 18; TEMP 37.1; O2SAT 96
--- NOTE | 2025-04-15 12:10 | EXP.DC.SUM ---
General Admission date:: 04/13/25 Discharge date: 04/15/25 HPI HPI HPI: Jeannine Garsia is a 35yo -0-2-2 who presented to labor and delivery today for labor augmentation. has been uncomplicated. On presentation the patient endorsed some light vaginal bleeding. Denies any leakage of fluid and endorses good movements. She has been having irregular contractions A+, antibody negative, rubella immune, hepatitis B negative, hepatitis C negative, RPR negative, HIV negative 1 hour GTT: 84 GBS negative Hospital Course Hospital Course Hospital Course: Jeannine Gómez is a pleasant 35-year-old day #2 from a normal spontaneous vaginal delivery on 04/13/2025 at 1747. She delivered a live viable female infant. Apgars were 8 and 10 at 1 and 5 minutes respectively. Weight was 7 pounds 1 ounce. She is breast-feeding and doing well. She has done well and has remained afebrile with her at her hospitalization. She is eating and drinking and ambulating. Her lochia is normal. She has A Rh+ blood, she is rubella immune and was group B streptococcus negative. She will be discharged home to follow-up with Dr. Jensen in 2 weeks time. She will continue with her vitamins. She will take ibuprofen as well. She was given the usual instructions with respect to limiting her activity, driving and sexual activity. She was given instructions with respect to wound care. Her condition on discharge is stable and improved. Exam Data for Last 24 hours Vital signs and Labs for Last 24 Hours: Temp Pulse Resp BP Pulse Ox O2 Del Method 98.8 F 95 H 18 118/59 L 96 Room Air 04/15/25 08:04 04/15/25 08:04 04/15/25 08:04 04/15/25 08:04 04/15/25 08:04 04/15/25 08:04 I & O for Last 24 hours: Intake & Output 04/12/25 04/13/25 04/14/25 04/15/25 23:59 23:59 23:59 23:59 Intake Total 2127.983 / 2127.983 250 / 250 Balance 2127.983 / 2127.983 250 / 250 Weight 169 lb Microbiology Reports for the Last 24 Hours: Microbiology 04/13/25 09:50 Urine,Clean Catch Urine Culture - Final NO GROWTH AFTER 48 HOURS Narrative: General: patient is alert oriented in no acute distress and responds appropriately to questions. Appears to be in minimal pain. Sitting up in the chair and doing well HEENT: NCAT, EOMI, moist mucous membranes, neck supple with full ROM Cardiovascular: RRR +S1/S2, no murmurs or rubs Pulmonary: Clear to auscultation bilaterally, nonlabored breathing, symmetric chest rise Abdominal: Fundus below the umbilicus, firm, and tenderness appropriate for the period. Extremities: trace edema, no tenderness or cyanosis noted Skin: Normal turgor, intact, warm. Negative for erythema, pallor, petechia, or lesions Neurologic: Negative for sensory or motor deficit Psychiatric: Normal affect, normal thought process, good judgment and insight, no depression or anxious mood appreciated. DS: Diagnosis Discharge Diagnosis (1) Unicornuate uterus affecting , antepartum: Status: Acute Code(s): O34.00 - Maternal care for unspecified congenital malformation of uterus, unspecified trimester; Q51.4 - Unicornate uterus (2) PCOS (polycystic ovarian syndrome): Status: Acute Code(s): E28.2 - Polycystic ovarian syndrome (3) (normal spontaneous vaginal delivery): Status: Acute Code(s): O80 - Encounter for full-term uncomplicated delivery Meds Home Medications and Allergies Home Medications ?Medication ?Instructions ?Recorded ?Confirmed ?Type [id number] 3 fatty no.1 27 1 cap PO DAILY 10/22/22 04/13/25 History mg-1 mg-300 mg capsule New Prescriptions to Start Prescriptions: Allergies Allergy/AdvReac Type Severity Reaction Status Date / Time No Known Allergies Allergy Verified 04/11/25 08:44 Discharge Plan Disposition Patient Disposition: Home, Self-Care Discharge Order Discharge Orders: Discharge Order (Routine); Ordered 04/15/25 Ordered By: Mary Jensen Follow up Plan Follow up with: Mary Jensen DO [Staff Physician, [employer]] - 2 weeks Prescriptions/Medication Reconciliation: Continued [id number] 3 fatty no.1 27-1-300 mg capsule 1 cap PO DAILY Problem Reconciliation Problems Reviewed?: Yes Patient Discharge Instructions ACTIVITY: Continue current activity and Ambulate as tolerated DIET: regular diet Additional Instructions: Congratulations on the delivery of your sweet baby girl. It is my privilege to be your doctor and I am so thankful I could be a part of your special day. Discharge: -Take 800 mg Ibuprofen every 8 hours as needed for pain. You can also take 500-1000 mg of Tylenol in between doses, every 6-8 hours. -Colace can be taken 1-2 times per day as you need to soften your stool. Make sure to drink at least 8 cups of water per day. -Iron supplements can make you constipated. You can take iron tablets every other day if constipation is too bad. -Nothing in the vagina for 6 weeks - no intercourse, douching, tampons. No tub baths or swimming pools. -Do not lift greater than 20pounds for 2 weeks, this is the equivalent of 2 gallons of milk. -Reasons to return to L&D or call On-Call doctor - fever (greater than 100.4) - heavy vaginal bleeding (soaking through 1 pad in less than 2 hours or passing clots that are egg sized) - vaginal discharge (malodorous and/or purulent) - severe headaches, leg tenderness/edema, or any other symptoms that warrant immediate medical attention. depression/blues - Normal to feel anxious/overwhelmed for first 2 weeks - Talk to your doctor if: anxiety lasts over 2 weeks, trouble bonding with baby, withdrawing from other family members, thoughts of harming yourself or others Mary Jensen DO [facility] [phone] *Nothing in the Vagina for 6 weeks* *No strenuous activity* *No heavy lifting* *No tub baths until okay's by MD* Patient Instructions: Depression, Hemorrhage, DI for Labor and Delivery, Vaginal , DI for Pre-eclampsia, [facility] Post Discharge Instructions Print Language: Maldivian Providers Primary Care Provider: Shara Leiva Admit Provider: Mary Jensen Attending Provider: Mary Jensen
== END 2025-04-15 12:35 | disposition home or self-care (01) | DRG 807 ==
PROVIDERS: Admitting Provider Obstetrics & Gynecology; PCP Physician Assistant; Visit Provider Obstetrics & Gynecology
DX: O34.03 Maternal care for unspecified congenital malformation of uterus, third trimester (principal); Z37.0 Single live birth; Q51.4 Unicornate uterus; Z3A.39 39 weeks gestation of pregnancy; O32.2XX0 Maternal care for transverse and oblique lie, not applicable or unspecified; O99.284 Endocrine, nutritional and metabolic diseases complicating childbirth; E28.2 Polycystic ovarian syndrome; Z23 Encounter for immunization
CPT/HCPCS: 36415; 51702; 59025; 81001; 85025; 86592; 86850; 87086; 94761; J2003; J2405; J2795; J3010; J7120; J7121